=== PATIENT | female | born 1990 | race Caucasian/White ===

== ENCOUNTER → 2020-10-26 14:19 | Outpatient (BNVA) | payer MEDICAID, SELFPAY | PROVIDERS: Visit Provider Advanced Practice Midwife | DX: N92.6 Irregular menstruation, unspecified (principal) | CPT/HCPCS: 81025; 99212 ==

== ENCOUNTER 2020-11-04 11:36 | Outpatient (REF) | payer MEDICAID, SELFPAY ==
--- NOTE | 2020-11-04 11:47 | US_ITS ---
EXAMINATION: US OB LESS THAN 14 WEEKS CLINICAL INFORMATION: Irregular menses. COMPARISON: None TECHNIQUE: Transabdominal imaging of pelvis is performed. FINDINGS: There is a single intrauterine uterine gestational sac and live fetus with an ultrasound gestational age of 7 weeks and 2 days and TERESA of 06/21/2021. There is visualization of yolk sac, pole and heart beat. The heart rate is 158 bpm. The right ovary measures 3.2 x 2.1 x 2.8 cm and a corpus luteal cyst measuring 2.2 x 1.3 x 1.6 cm. The left ovary is not visualized as surgically removed. There is a small amount of free fluid in cul-de-sac. US/US OB <= 14 weeks fetus IMPRESSION: Single live intrauterine fetus with an ultrasound gestational age of 7 weeks and 2 days.
== END 2020-11-04 11:37 | disposition home or self-care (01) ==
LOC: HO.US 11:36
PROVIDERS: Visit Provider Advanced Practice Midwife
DX: N92.6 Irregular menstruation, unspecified (principal)
CPT/HCPCS: 76801

== ENCOUNTER → 2020-11-25 13:59 | Outpatient (BNVA) | payer MEDICAID, SELFPAY | PROVIDERS: Visit Provider Advanced Practice Midwife | CPT/HCPCS: 99212 ==

== ENCOUNTER 2020-11-29 13:11 | Outpatient (REF) | payer MEDICAID, SELFPAY ==
[2020-11-29 14:24] LABS: MANUAL DIFF FLAG NO
[2020-11-29 14:28] LABS: Basophils Absolute Auto 0.1 X10*3/uL (0.0-0.2); Basophils Percent Auto 0.8 % (0-2); Eosinophils Absolute Auto 0.1 X10*3/uL (0.0-0.4); Eosinophils Percent Auto 0.8 % (0-4); Hematocrit 34.8 % (37-47); Hemoglobin 12.1 g/dl (12.0-16.0); Imm Gran Abs Auto 0.01 X10*3/uL (0.00-0.03); Imm Gran Pct Auto 0.2 % (0.0-0.4); Lymphocytes Absolute Auto 2.2 X10*3/uL (1.2-4.9); Lymphocytes Percent Auto 33.9 % (20-40); Mean Corpuscular HGB Conc 34.8 g/dl (31.0-35.0); Mean Corpuscular Hemoglobin 31.3 pg (27.0-33.0); Mean Corpuscular Volume 89.9 fL (80-98); Mean Platelet Volume 11.5 fL (9.4-12.3); Monocytes Absolute Auto 0.4 X10*3/uL (0.1-1.2); Monocytes Percent Auto 5.8 % (2-11); Neutrophils Absolute Auto 3.8 X10*3/uL (2.0-8.3); Neutrophils Percent Auto 58.5 % (45-73); Platelet Count 211 X10*3/uL (160-400); Red Blood Count 3.87 X10*6/uL (4.20-5.50); Red Cell Distribution Width 12.6 % (11.0-16.0); White Blood Count 6.5 X10*3/uL (4.8-10.8)
[2020-11-29 15:32] LABS: Syphilis Screen Nonreactive (Nonreactive)
[2020-11-29 16:53] LABS: Amphetamine Screen Urine Not Detected (Not Detect); Barbiturates, Urine Not Detected (Not Detect); Benzodiazepines Screen Urine Not Detected (Not Detect); Cannabinoid Screen Urine Not Detected (Not Detect); Cocaine Screen Urine Not Detected (Not Detect); Opiate Screen Urine Not Detected (Not Detect); Phencyclidine Screen Urine Not Detected (Not Detect)
[2020-11-30 03:53] LABS: HBsAGNum1 0.25 S/CO (0.00-0.99); HIV AB/AG Nonreactive (Nonreactive); HIV Num 1 0.06 S/CO (0.00-0.99); Hepatitis B Surface Antigen Negative (Negative)
[2020-11-30 04:00] LABS: ~HepC Num1 0.08 S/CO (0.00-0.79); ~Hepatitis C Antibody Nonreactive (Nonreactive)
== END 2020-11-29 13:12 | disposition home or self-care (01) ==
LOC: HO.LAB 13:11
PROVIDERS: PCP Internal Medicine; Visit Provider Advanced Practice Midwife
DX: Z34.90 Encounter for supervision of normal pregnancy, unspecified, unspecified trimester (principal)
CPT/HCPCS: 80307; 85025; 86762; 86780; 86787; 86803; 86850; 86900; 86901; 87086; 87147; 87340; 87389

== ENCOUNTER 2020-12-10 11:05 | Outpatient (REF) | payer MEDICAID, SELFPAY ==
--- NOTE | ~2020-12-10 | US_ITS ---
EXAMINATION: OBSTETRICAL ULTRASOUND, FIRST TRIMESTER HISTORY: 30-year-old at the 13.2 weeks of gestation NT screening History of SGA COMPARISON: 05/09/2019 TECHNIQUE: Real time transabdominal imaging with color and M-mode Doppler. FINDINGS: A single, live IUP CRL of 66.9 mm c/w 13.0wks is noted. Heart Rate: 156 beats per minute. Normal yolk sac seen. NT was 1.27.mm. NB Present The embryo appears sonographically wnl for this GA. Subchorionic hematoma is noted. Patient is asymptomatic. Right ovary is normal. Status post left oophorectomy. GESTATIONAL AGE: 1. Established GA: 13.2 wks 2. GA from [facility]: 13.0 wks ESTIMATED DATE OF DELIVERY: 1. Established TREESA: 06/15/2021 2. TERESA from [facility]: 06/17/2021 US/US OB 1T nuc measure IMPRESSION: 1. Single live IUP 2. Size equals dates 3. NT of 1.27 mm MFM Consultation: I reviewed the ultrasound findings along with significance of NT measurement. The NT of less than 3mm is generally reassuring. However, the sensitivity for T21 detection is only 60%. I reviewed the availability of serum aneuploidy screening which includes cell-free DNA and placental protein based tests. I discussed the sensitivity, false-positive rate, and other limitations associated with each test. I also reviewed the availability of invasive diagnostic tests that are associated small but definite risk of miscarriage. We also reviewed the differences between screening tests and diagnostic tests. After our discussion, she opted for the First trimester screening that is based on cell-free DNA or non-invasive testing (NIPT). In 2019, she was induced at 38 weeks of gestation for suspected of SGA. The weight was 5 lbs. 11 oz. The child is doing well. She has 3 other healthy children. I reassured her that approximately 70% of the fetuses whose EFW corresponds to less than 10th percentile are constitutionally children who are growing appropriately. Interval growth evaluation throughout the is suggested. A follow up at 18 weeks for survey has been scheduled. Thank you very much for this referral. Majority of this visit was spent reviewing her care and counselling her in face to face time: Time spent 30 min.
== END 2020-12-10 11:06 | disposition home or self-care (01) ==
LOC: HO.US 11:05
PROVIDERS: Visit Provider Advanced Practice Midwife
DX: Z34.91 Encounter for supervision of normal pregnancy, unspecified, first trimester (principal); Z36.82 Encounter for antenatal screening for nuchal translucency
CPT/HCPCS: 76813

== ENCOUNTER 2020-12-16 13:13 | Outpatient (REF) | payer MEDICAID, SELFPAY ==
[2020-12-16 15:59] LABS: Thyroid Stimulating Hormone 2.07 uIU/mL (0.32-4.0)
[2020-12-16 16:11] LABS: Glucose Random 67 mg/dL (60-115)
[2020-12-17 09:00] LABS: BV Int Neg Control Negative (Negative); BV Int Pos Control Positive (Positive)
[2020-12-17 14:02] LABS: C. trachomatis RNA TMA NOT DETECTED (NOT DETECTED); N. gonorrhoeae RNA TMA NOT DETECTED (NOT DETECTED)
== END 2020-12-16 13:14 | disposition home or self-care (01) ==
LOC: HO.LAB 13:13
PROVIDERS: Visit Provider Advanced Practice Midwife
DX: O99.340 Other mental disorders complicating pregnancy, unspecified trimester (principal); F32.9 Major depressive disorder, single episode, unspecified
CPT/HCPCS: 36415; 81003; 82947; 84443; 87480; 87491; 87510; 87591; 87660; 88142; 99212

== ENCOUNTER → 2021-01-13 11:44 | Outpatient (BNVA) | payer MEDICAID, SELFPAY | PROVIDERS: Visit Provider Advanced Practice Midwife | DX: Z34.92 Encounter for supervision of normal pregnancy, unspecified, second trimester (principal); Z3A.18 18 weeks gestation of pregnancy | CPT/HCPCS: 99212 ==

== ENCOUNTER 2021-01-21 10:51 | Outpatient (REF) | payer MEDICAID, SELFPAY ==
--- NOTE | ~2021-01-21 | US_ITS ---
EXAMINATION: US OBSTETRICAL CLINICAL INFORMATION: 30-year-old at 19.2 weeks of gestation Suspected anomaly COMPARISON: 12/10/2020 TECHNIQUE: Real-time transabdominal ultrasound was performed using C1-5 megahertz transducer. FINDINGS: A single, active, fetus is seen in transverse presentation. The placenta is posterior without previa, and the amniotic fluid volume is wnl. MEASUREMENTS: 1. Biparietal Diameter: 4.2 cm; 18.5 wks 2. Occipital Frontal Diameter: 5.5 cm 3. Head Circumference: 15.7 cm; 18.5 wks 4. Abdominal Circumference: 13.0 cm; 18.4 wks 5. Femur Length: 3.1 cm; 19.4 wks 6. Humerus Length: 2.9 cm; 19.4 wks 7. Tibia Length: 2.7 cm; 19.5 wks 8. Ulna Length: 2.6 cm; 19.4 wks 9. Lateral ventricle: 0.85 cm 10. Cerebellum: 1.8 cm; 18.3 wks 11. Cisterna Magna: 0.4 cm 12. Nuchal Fold: 3.0 mm 13. Heart Rate: 149 beats per minute Rt ovary: Status post nephrectomy Lt ovary: normal Cervical length 3.6 cm on T/A. GESTATIONAL AGE: 1. Established GA: 19.2 wks 2. GA from [facility]: 19.0 wks ESTIMATED DATE OF DELIVERY: 1. Established TERESA: 06/15/2021 2. TERESA from [facility]: 06/17/2021 ANATOMY: Left choroid plexus cyst was noted. Rest of the survey was unremarkable. The visualized anatomy includes but not limited to: 1. Cranium: Normal 2. Intracranial anatomy: Left choroid plexus cyst, cavum septum pellucidi, lateral ventricles, cerebellum, posterior fossa, third and fourth ventricles. 3. face: orbits, lip/palate, profile, nasal bone 4. Heart: four-chamber view of the heart, ventricular septum, foramen ovale, pulmonary vein, left and right outflow tracts, three-vessel view, 3 vessel trachea view, aortic and ductal arches, situs.. 5. Diaphragm: Normal 6. Abdominal wall: Normal 7. Cord Insertion: Normal 8. Spine: Cervical, thoracic, lumbar, sacral. 9. Stomach: Normal size and shape 10. Right Kidney: Normal 11. Left Kidney: Normal 12. 3 vessel cord: Normal 13. Upper extremity: Open hands, fifth digit. 14. Lower extremity: Tibia, fibula, bilateral feet. 15. Bladder: Normal 16. Genitalia: Male, patient aware US/US OB /maternal detail IMPRESSION: 1. Single, living, intrauterine with appropriate biometry. 2. Isolated choroid plexus cyst. Rest of the survey was unremarkable. 3. Normal amniotic fluid volume DISCUSSION: I reviewed the association between choroid plexus cyst and trisomy 18. The likelihood ratio is less than 2. She had low risk NIPT. In this setting, isolated choroid plexus cyst is considered to be a normal variant. Aside from its association with the trisomy 18, the clinical significance of choroid plexus cyst is unknown. We discussed the limitations of ultrasound in diagnosing aneuploidy and other congenital abnormalities. I reviewed the differences between screening test and diagnostic test. Amniocentesis was discussed and declined. She was informed that the baseline incidence of congenital abnormalities is approximately 3-5%. Not all these conditions are diagnosable in utero. RECOMMENDATIONS: 1. Follow-up as clinically indicated Thank you for allowing me to participate in her care. Total time 30 minutes. The time spent was devoted to counseling the patient about the disease and diagnosis, coordinating care including reviewing her records, pertinent lab data and studies, as well as discussing diagnostic evaluation and workup, plan therapeutic interventions and future disposition of care. This includes any additional research needed to obtain further information in formulating the plan of care of this patient. This note was generated with a voice recognition program. Please excuse any errors which may have been overlooked during my review of this note. Sometimes these errors may affect the content or meaning of a given sentence.
== END 2021-01-21 10:52 | disposition home or self-care (01) ==
LOC: HO.US 10:51
PROVIDERS: Visit Provider Advanced Practice Midwife
DX: O35.9XX0 Maternal care for (suspected) fetal abnormality and damage, unspecified, not applicable or unspecified (principal); O99.340 Other mental disorders complicating pregnancy, unspecified trimester; F32.9 Major depressive disorder, single episode, unspecified; Z3A.19 19 weeks gestation of pregnancy
CPT/HCPCS: 76811

== ENCOUNTER → 2021-02-21 13:25 | Outpatient (BNVA) | payer MEDICAID, SELFPAY | PROVIDERS: Visit Provider Advanced Practice Midwife | DX: Z34.92 Encounter for supervision of normal pregnancy, unspecified, second trimester (principal); Z3A.23 23 weeks gestation of pregnancy | CPT/HCPCS: 81003; 99212 ==

== ENCOUNTER → 2021-03-28 10:01 | Outpatient (BNVA) | payer MEDICAID, SELFPAY | PROVIDERS: Visit Provider Advanced Practice Midwife | DX: Z34.93 Encounter for supervision of normal pregnancy, unspecified, third trimester (principal); Z3A.28 28 weeks gestation of pregnancy | CPT/HCPCS: 81003; 99212 ==

== ENCOUNTER → 2021-04-11 10:59 | Outpatient (BNVA) | payer MEDICAID, SELFPAY | PROVIDERS: Visit Provider Advanced Practice Midwife | DX: O36.8130 Decreased fetal movements, third trimester, not applicable or unspecified (principal); O36.63X0 Maternal care for excessive fetal growth, third trimester, not applicable or unspecified; Z3A.30 30 weeks gestation of pregnancy | CPT/HCPCS: 59025; 99212 ==

== ENCOUNTER 2021-04-15 13:52 | Outpatient (REF) | payer MEDICAID, SELFPAY ==
--- NOTE | ~2021-04-15 | US_ITS ---
EXAMINATION: OBSTETRICAL ULTRASOUND, Follow up HISTORY: 30-year-old at 31.2 weeks of gestation Size date discrepancy COMPARISON: 01/21/2021 TECHNIQUE: Real time transabdominal imaging with color and M-mode Doppler. PRESENTATION: Vertex PLACENTA LOCATION: Posterior without previa AMNIOTIC FLUID: KEVIN 18.7 cm MEASUREMENTS: 1. Biparietal Diameter: 7.7 cm; 31.1 wks 2. Head Circumference: 28.7 cm; 31.5 wks 3. Abdominal Circumference: 26.1 cm; 30.2 wks 4. Femur Length: 6.3 cm; 32.5 wks 5. Heart Rate: 138 beats per minute WEIGHT: EFW: 1720 grams (3 lbs 13 oz) -- 35 %. BIOPHYSICAL PROFILE: Motion: 2 Tone: 2 Breathin Amniotic Fluid: 2 Total score: 8/8 GESTATIONAL AGE: 1. Established GA: 31.2 wks 2. GA from A: 31.4 wks ESTIMATED DATE OF DELIVERY: 1. Established TERESA: 06/15/2021 2. TERESA from [facility]: 06/13/2021 US/US OB follow up IMPRESSION: 1. A single active fetus is in vertex presentation 2. Size equals dates 3. Reassuring biophysical profile Thank you very much for this referral. No further ultrasound has been scheduled. This note was generated with a voice recognition program. Please excuse any errors which may have been overlooked during my review of this note. Sometimes these errors may affect the content or meaning of a given sentence.
== END 2021-04-15 13:53 | disposition home or self-care (01) ==
LOC: HO.US 13:52
PROVIDERS: Visit Provider Advanced Practice Midwife
DX: O36.60X0 Maternal care for excessive fetal growth, unspecified trimester, not applicable or unspecified (principal)
CPT/HCPCS: 76816

== ENCOUNTER → 2021-04-27 13:07 | Outpatient (BNVA) | payer MEDICAID, SELFPAY | PROVIDERS: Visit Provider Advanced Practice Midwife | DX: Z34.93 Encounter for supervision of normal pregnancy, unspecified, third trimester (principal); Z3A.33 33 weeks gestation of pregnancy | CPT/HCPCS: 81003; 99212 ==

== ENCOUNTER 2021-05-11 10:51 | Outpatient (REF) | payer MEDICAID, SELFPAY ==
[2021-05-11 14:02] LABS: Hematocrit 31.7 % (37-47); Hemoglobin 10.4 g/dl (12.0-16.0); Mean Corpuscular HGB Conc 32.8 g/dl (31.0-35.0); Mean Corpuscular Hemoglobin 30.3 pg (27.0-33.0); Mean Corpuscular Volume 92.4 fL (80-98); Mean Platelet Volume 12.2 fL (9.4-12.3); Platelet Count 153 X10*3/uL (160-400); Red Blood Count 3.43 X10*6/uL (4.20-5.50); Red Cell Distribution Width 12.2 % (11.0-16.0); White Blood Count 7.6 X10*3/uL (4.8-10.8)
[2021-05-11 14:37] LABS: Glucose 1 Hour PP 50gm Dose 95 mg/dL (60-140)
[2021-05-11 16:02] LABS: Syphilis Screen Nonreactive (Nonreactive)
== END 2021-05-11 10:52 | disposition home or self-care (01) ==
LOC: HO.LAB 10:51
PROVIDERS: Visit Provider Advanced Practice Midwife
DX: Z23 Encounter for immunization (principal); O26.843 Uterine size-date discrepancy, third trimester
CPT/HCPCS: 36415; 85027; 86780; 90471; 90715; 99212

== ENCOUNTER 2021-05-18 11:29 | Outpatient (REF) | payer MEDICAID, SELFPAY ==
[2021-05-18 16:09] LABS: CT PCR NOT DETECTED (Not Detect.); NG PCR NOT DETECTED (Not Detect.)
== END 2021-05-18 11:30 | disposition home or self-care (01) ==
LOC: HO.LAB 11:29
PROVIDERS: Visit Provider Advanced Practice Midwife
DX: O26.843 Uterine size-date discrepancy, third trimester (principal); O99.013 Anemia complicating pregnancy, third trimester; D64.9 Anemia, unspecified; Z3A.36 36 weeks gestation of pregnancy
CPT/HCPCS: 81003; 87081; 87147; 87491; 87591; 99212

== ENCOUNTER 2021-05-20 10:51 | Outpatient (REF) | payer MEDICAID, SELFPAY ==
--- NOTE | ~2021-05-20 | US_ITS ---
EXAMINATION: OBSTETRICAL ULTRASOUND, Follow up HISTORY: 30-year-old at the 30 6. The 2 weeks of gestation Size less than dates COMPARISON: 04/15/2021 TECHNIQUE: Real time transabdominal imaging with color and M-mode Doppler. PRESENTATION: Vertex PLACENTA LOCATION: Posterior without previa AMNIOTIC FLUID: Within normal limits, KEVIN 14.0 cm MEASUREMENTS: 1. Biparietal Diameter: 8.7 cm; 35.3 wks 2. Head Circumference: 32.3 cm; 36.4 wks 3. Abdominal Circumference: 32.0 cm; 36.0 wks 4. Femur Length: 7.1 cm; 36.1 wks 5. Heart Rate: 147 beats per minute WEIGHT: EFW: 2816 grams (6 lbs 3 oz) -- 44 %. BIOPHYSICAL PROFILE: Motion: 2 Tone: 2 Breathin Amniotic Fluid: 2 Total score: 05/29 GESTATIONAL AGE: 1. Established GA: 36.2 wks 2. GA from [facility]: 36.1 wks ESTIMATED DATE OF DELIVERY: 1. Established TERESA: 06/15/2021 2. TERESA from [facility]: 06/16/2021 US/US OB follow up IMPRESSION: 1. A single active fetus is in vertex presentation 2. Size equals dates 3. BPP 05/29 Thank you very much for this referral. This note was generated with a voice recognition program. Please excuse any errors which may have been overlooked during my review of this note. Sometimes these errors may affect the content or meaning of a given sentence.
== END 2021-05-20 10:52 | disposition home or self-care (01) ==
LOC: HO.US 10:51
PROVIDERS: Visit Provider Advanced Practice Midwife
DX: O26.843 Uterine size-date discrepancy, third trimester (principal); Z3A.00 Weeks of gestation of pregnancy not specified
CPT/HCPCS: 76816

== ENCOUNTER → 2021-05-25 11:15 | Outpatient (BNVA) | payer MEDICAID, SELFPAY | PROVIDERS: Visit Provider Advanced Practice Midwife | DX: O99.013 Anemia complicating pregnancy, third trimester (principal); Z3A.37 37 weeks gestation of pregnancy | CPT/HCPCS: 81003; 99212 ==

== ENCOUNTER → 2021-07-01 12:49 | Outpatient (BNVA) | payer MEDICAID, SELFPAY | PROVIDERS: Visit Provider Advanced Practice Midwife | DX: Z39.2 Encounter for routine postpartum follow-up (principal); Z39.1 Encounter for care and examination of lactating mother; Z30.09 Encounter for other general counseling and advice on contraception | CPT/HCPCS: 99212 ==

== ENCOUNTER 2021-09-19 08:36 | Outpatient (REF) | payer MEDICAID, SELFPAY ==
[2021-09-20 09:39] LABS: BV Int Neg Control Negative (Negative); BV Int Pos Control Positive (Positive)
== END 2021-09-19 08:37 | disposition home or self-care (01) ==
LOC: HO.LAB 08:36
PROVIDERS: Visit Provider Advanced Practice Midwife
DX: Z39.1 Encounter for care and examination of lactating mother (principal); Z30.017 Encounter for initial prescription of implantable subdermal contraceptive; N89.8 Other specified noninflammatory disorders of vagina; Z20.2 Contact with and (suspected) exposure to infections with a predominantly sexual mode of transmission
CPT/HCPCS: 11981; 81025; 87480; 87510; 87660; 99212; J7307

== ENCOUNTER → 2022-02-01 12:05 | Outpatient (BNVA) | payer MEDICAID, SELFPAY | PROVIDERS: Visit Provider Advanced Practice Midwife | DX: Z13.89 Encounter for screening for other disorder (principal) ==

== ENCOUNTER → 2022-03-06 13:43 | Outpatient (BNVA) | payer MEDICAID, SELFPAY | PROVIDERS: Visit Provider Advanced Practice Midwife | DX: N92.1 Excessive and frequent menstruation with irregular cycle (principal); Z97.5 Presence of (intrauterine) contraceptive device | CPT/HCPCS: 99212 ==

== ENCOUNTER 2022-11-09 10:35 | Outpatient (REF) | payer MEDICAID, SELFPAY ==
[2022-11-09 11:47] LABS: Hematocrit 35.8 % (37.0-47.0); Hemoglobin 12.2 g/dl (12.0-16.0); Mean Corpuscular HGB Conc 34.1 g/dl (31.0-35.0); Mean Corpuscular Hemoglobin 30.3 pg (27.0-33.0); Mean Corpuscular Volume 88.8 fL (80.0-98.0); Platelet Count 202 X10*3/uL (160-400); Red Blood Count 4.03 X10*6/uL (4.20-5.50)
[2022-11-09 16:07] LABS: CT PCR NOT DETECTED (Not Detect.); NG PCR NOT DETECTED (Not Detect.)
== END 2022-11-09 10:36 | disposition home or self-care (01) ==
LOC: HO.LAB 10:35
PROVIDERS: Visit Provider Advanced Practice Midwife
DX: N92.1 Excessive and frequent menstruation with irregular cycle (principal); Z97.5 Presence of (intrauterine) contraceptive device; Z20.2 Contact with and (suspected) exposure to infections with a predominantly sexual mode of transmission; Z32.00 Encounter for pregnancy test, result unknown
CPT/HCPCS: 0353U; 81025; 84443; 85027; 87480; 87510; 87660; 99212

== ENCOUNTER 2022-11-09 11:18 | Outpatient (REF) | payer MEDICAID, SELFPAY ==
[2022-11-10 09:56] LABS: BV Int Neg Control Negative (Negative); BV Int Pos Control Positive (Positive)
== END 2022-11-09 11:19 | disposition home or self-care (01) ==
LOC: HO.LNP 11:18
PROVIDERS: Visit Provider Advanced Practice Midwife
DX: N92.1 Excessive and frequent menstruation with irregular cycle (principal); Z97.5 Presence of (intrauterine) contraceptive device; Z20.2 Contact with and (suspected) exposure to infections with a predominantly sexual mode of transmission
CPT/HCPCS: 87480; 87510; 87660

== ENCOUNTER 2023-01-26 12:38 | Emergency (ER) | payer MEDICAID, SELFPAY ==
--- NOTE | ~2023-01-26 | XR_ITS ---
EXAMINATION: XR WRIST, LEFT CLINICAL INFORMATION: Pain COMPARISON: None available. TECHNIQUE: 4 views of the left wrist. FINDINGS: The bones and soft tissues are normal. No fracture. Alignment is anatomic with normal joint spaces. No erosions or abnormal soft tissue calcifications. XR/XR wrist LT 2V IMPRESSION: Normal left wrist.
--- NOTE | 2023-01-26 12:48 | ED_ITS ---
HPI - General Adult General Chief complaint: Extremity Injury, Upper <SANTO Barajas - Last Filed: 01/26/23 13:58> Stated complaint: l wrist pain <SANTO Barajas - Last Filed: 01/26/23 13:58> Time Seen by Provider: 01/26/23 13:57 <SANTO Barajas - Last Filed: 01/26/23 13:58> Source: patient <Abhishek Guerrero MD - Last Filed: 01/26/23 14:05> Mode of arrival: ambulatory <Abhishek Guerrero MD - Last Filed: 01/26/23 14:05> Limitations: no limitations <Abhishek Guerrero MD - Last Filed: 01/26/23 14:05> History of Present Illness HPI narrative: 32-year-old female presents with left ulnar wrist pain for 1 day. Patient denies any falls or injury. The pain is moderate in nature. The pain radiates to the fingers distally. Is worse with certain twisting movements. There is no weakness associated with. There is no trauma. She denies any joint or other musculoskeletal complaints. <Abhishek Guerrero MD - Last Filed: 01/26/23 14:05> Related Data Home medications: Home Medications Medication Instructions Recorded Confirmed etonogestrel 68 mg subdermal subdermal 02/01/22 03/06/22 implant (Nexplanon) Previous Rx's Medication Instructions Recorded naproxen 500 mg tablet 500 mg PO BID 2 weeks #28 tabs 01/26/23 <SANTO Barajas - Last Filed: 01/26/23 13:58> Allergies/adverse reactions: Allergies Allergy/AdvReac Type Severity Reaction Status Date / Time No Known Allergies Allergy Verified 11/09/22 10:44 [No Known Allergies*] <SANTO Barajas - Last Filed: 01/26/23 13:58> [facility] Past Medical History Medical History: Medical History COVID-19 <SANTO Barajas - Last Filed: 01/26/23 13:58> Surgical History: Surgical History S/P removal of left ovary <SANTO Barajas - Last Filed: 01/26/23 13:58> Family History Family History: Family History Mother History of heart disease Father Hx of heart bypass surgery Maternal Grandmother No problems noted. Sister Family history of bipolar disorder <SANTO Barajas - Last Filed: 01/26/23 13:58> Social History Social History: Social History Household Members: Significant Other and Children Alcohol intake: never Sexual orientation: Straight/Heterosexual Gender identity: Female <SANTO Barajas - Last Filed: 01/26/23 13:58> Physical Exam ED Vital Signs: Vital Signs - 24 hr 01/26/23 12:49 Temperature 97.6 F Pulse Rate 74 Respiratory Rate 14 Blood Pressure 111/68 Pulse Oximetry 99 Oxygen Delivery Method Room Air BMI result Body Mass Index 19.7 <SANTO Barajas - Last Filed: 01/26/23 13:58> Vital Signs - 24 hr 01/26/23 12:49 Temperature 97.6 F Pulse Rate 74 Respiratory Rate 14 Blood Pressure 111/68 Pulse Oximetry 99 Oxygen Delivery Method Room Air BMI result Body Mass Index 19.7 <Abhishek Guerrero MD - Last Filed: 01/26/23 14:05> GEN: Well developed, no acute distress, alert, oriented HEENT: Normocephalic, atraumatic, normal external ears, nose appears normal Eyes: Normal to appearance Neck: Supple, no lymphadenopathy Respiratory: Talks in complete sentences, no respiratory distress Extremities: No clubbing cyanosis or edema, tenderness along the ulnar aspect of the left wrist, no swelling or redness, no deformity Neurologic: No focal neurologic deficits, cranial nerves 2-12 intact, gait normal Skin: No rash <Abhishek Guerrero MD - Last Filed: 01/26/23 14:05> Course Course Course Narrative: RME performed by Samira Lopez PA-C. Patient is a 32 year old assigned female at presenting to the emergency department with right wrist pain. Imaging ordered. Patient placed back in the waiting room pending room availability and results. <SANTO Barajas Last Filed: 01/26/23 13:58> Reevaluation(s) Reevaluation #1: X-rays negative. Symptoms are most consistent with either a contusion of unclear etiology or tendinitis. Any event, we will recommend NSAID use, ice and follow up with primary care provider as needed. <Abhishek Guerrero MD - Last Filed: 01/26/23 14:05> Time: 14:01 <Abhishek Guerrero MD - Last Filed: 01/26/23 14:05> Medical Decision Making Medical Decision Making MDM Narrative: 32-year-old female presents with left ulnar wrist pain, nontraumatic. Examination revealed tenderness but no swelling or deformity. X-ray was negative for fracture. Suspect either tendinitis or contusion. Will recommend NSAID use in follow-up as needed. <Abhishek Guerrero MD - Last Filed: 01/26/23 14:05> Differential Diagnosis Differential Diagnoses: The differential diagnosis associated with the presentation includes (Contusion, sprain, strain, fracture, tendinitis, bursitis) <Abhishke Guerrero MD - Last Filed: 01/26/23 14:05> Independent Interpretation I performed an independent interpretation of an: Plain X-Ray (left wrist - NAD) <Abhishek Guerrero MD - Last Filed: 01/26/23 14:05> Radiology Impression Discussion of test interpretation with radiology: I have reviewed the radiologist's reading. ( XR/XR wrist LT 2V IMPRESSION: Normal left wrist. Dictated By:Ce Bolden MDSigned By:<Electronically signed by Ce Bolden MD in [place]>01/26/23 1344) <Abhishek Guerrero MD - Last Filed: 01/26/23 14:05> Tests considered The following testing was considered but not selected: CT <Abhishek Guerrero MD - Last Filed: 01/26/23 14:05> Prescription Management I considered prescription management with: Pain Medication <Abhishek Guerrero MD - Last Filed: 01/26/23 14:05> Discharge Plan Discharge Clinical Impression: Acute pain of left wrist <SANTO Barajas - Last Filed: 01/26/23 13:58> Patient Disposition: Home, Self-Care <SANTO Barajas - Last Filed: 01/26/23 13:58> Instructions: Wrist Injury (ED), Arthralgia (ED), Tendinitis (ED), Ice Pack Application (ED) <SANTO Barajas - Last Filed: 01/26/23 13:58> Prescriptions: New naproxen 500 mg tablet 500 mg PO BID 14 Days Qty: 28 0RF Rx Instructions: take with food Discontinued ibuprofen 600 mg tablet 600 mg PO TID PRN (Reason: pain) 10 Days Qty: 30 0RF No Action Nexplanon 68 mg implant subdermal <SANTO Barajas - Last Filed: 01/26/23 13:58> Referrals: Physician,Unknown J [Primary Care Provider] - 2 weeks <SANTO Barajas - Last Filed: 01/26/23 13:58>
[2023-01-26 12:49] VITALS: BP 111/68; PULSE 74; RESP 14; TEMP 36.4; O2SAT 99; BMI 19.7
== END 2023-01-26 14:16 | disposition home or self-care (01) ==
PROVIDERS: Emergency Provider Emergency Medicine
DX: M25.532 Pain in left wrist (principal)
CPT/HCPCS: 73100; 99282; 99283

== ENCOUNTER 2023-04-04 11:00 | Emergency (ER) | payer MEDICAID, SELFPAY ==
--- NOTE | ~2023-04-04 | US_ITS ---
EXAMINATION: US OBSTETRICAL ULTRASOUND CLINICAL INFORMATION: 11 week and bleeding COMPARISON: None available. LMP: 01/18/2023. Gestational age by maternal dates is 10 weeks 6 days. Estimated date of delivery by maternal dates is 10/25/2019. TECHNIQUE: Both transabdominal and endovaginal scanning was performed. FINDINGS: A gestational sac is seen but no yolk sac is detected. A pole is identified that measures 0.37 cm which would correspond to gestational age of 6 weeks 1 day. However, no heartbeat is detected. . MATERNAL ADNEXA: The right maternal ovary measures 3.6 x 4.1 x 2.0 cm. There is a 1.8 cm benign cyst in the right ovary. The left maternal ovary has been removed No free fluid present in the cul-de-sac. US/US OB pelvic and transvaginal IMPRESSION: A pole is seen but no heartbeat is detected. The yolk sac is not seen. Suspect nonviable fetus but Short-term sonographic follow-up and serial beta hCG levels are recommended for further evaluation.
[2023-04-04 11:31] VITALS: BP 109/76; PULSE 89; RESP 18; TEMP 37; O2SAT 99; BMI 19.9
--- NOTE | 2023-04-04 11:31 | ED_ITS ---
HPI - General Chief complaint: Vaginal Bleeding Stated complaint: bleeding Related Data Home Medications Medication Instructions Recorded Confirmed etonogestrel 68 mg subdermal subdermal 02/01/22 03/06/22 implant (Nexplanon) Previous Rx's Medication Instructions Recorded naproxen 500 mg tablet 500 mg PO BID 2 weeks #28 tabs 01/26/23 Allergies Allergy/AdvReac Type Severity Reaction Status Date / Time No Known Allergies Allergy Verified 11/09/22 10:44 [No Known Allergies*] [facility] Past Medical History Medical History COVID-19 Surgical History S/P removal of left ovary Family History Family History Mother History of heart disease Father Hx of heart bypass surgery Maternal Grandmother No problems noted. Sister Family history of bipolar disorder Social History Social History Household Members: Significant Other and Children Alcohol intake: never Advance Directives: No Advance Directives Information Provided: No Sexual orientation: Straight/Heterosexual Gender identity: Female Physical Exam Vital Signs: Vital Signs: Last Vital Signs Temp 98.6 F 04/04/23 11:31 Pulse 89 04/04/23 11:31 Resp 18 04/04/23 11:31 BP 109/76 04/04/23 11:31 Pulse Ox 99 04/04/23 11:31 O2 Del Method Room Air 04/04/23 11:31 BMI result Body Mass Index 19.9 Course Course Course Narrative: RME - 32 y/o female who is currently 11 weeks presents to the ER for evaluation of painless vaginal bleeding for the last 3 days. Described as spotting. OB at [facility] aware but cannot see her until next week. Plan: labs, quant, RH, Ob U/S Reevaluation(s) Reevaluation #1: patient eloped from the ER. attempted to call her to tell her of the results of her U/S showing a nonviable with no HR however her phone went to with no identifiers. Medical Decision Making Lab Data 04/04/23 12:06 04/04/23 12:06 Labs: Lab Results 04/04/23 04/04/23 04/04/23 Range/Units 12:06 12:06 12:06 WBC 8.2 (4.8-10.8) X10*3/uL RBC 4.07 L (4.20-5.50) X10*6/uL Hgb 12.4 (12.0-16.0) g/dl Hct 36.7 L (37.0-47.0) % MCV 90.2 (80.0-98.0) fL MCH 30.5 (27.0-33.0) pg MCHC 33.8 (31.0-35.0) g/dl RDW 12.2 (11.0-16.0) % Plt Count 213 (160-400) X10*3/uL MPV 10.6 (9.4-12.3) fL Immature Gran % (Auto) 0.2 (0.0-0.4) % Neut % (Auto) 60.7 (45-73) % Lymph % (Auto) 32.2 (20-40) % [place] % (Auto) 5.6 (2-11) % Eos % (Auto) 0.4 (0-4) % Baso % (Auto) 0.9 (0-2) % Lymph # (Auto) 2.6 (1.2-4.9) X10*3/uL [place] # (Auto) 0.5 (0.1-1.2) X10*3/uL Eos # (Auto) 0.0 (0.0-0.4) X10*3/uL Baso # (Auto) 0.1 (0.0-0.2) X10*3/uL Abs Immat Gran (auto) 0.02 (0.00-0.03) X10*3/uL Absolute Neuts (auto) 5.0 (2.0-8.3) x10*3/uL Absolute Nucleated RBC 0.000 (0.0-0.012) X10*3/uL Nucleated RBC % (auto) 0.0 (0.0-0.2) /100WBC Sodium 139 (135-145) mmol/L Potassium 3.5 (3.3-5.1) mmol/L Chloride 109 H (96-108) mmol/L Carbon Dioxide 24 (22-29) mmol/L Anion Gap 10 L (12-20) BUN 9 (9-16) mg/dL Creatinine 0.63 (0.5-1.4) mg/dL Estim Creat Clear Calc 100.9 Estimated GFR > 60 Random Glucose 87 (60-115) mg/dL Calcium 9.3 (8.4-10.2) mg/dL Magnesium 2.1 (1.6-2.6) mg/dL Total Bilirubin 0.8 (0.0-1.0) mg/dL Direct Bilirubin 0.2 (0.0-0.5) mg/dL AST 26 (5-31) U/L ALT 16 (0-31) U/L Alkaline Phosphatase 52 (39-117) U/L Total Protein 7.4 (6.5-8.0) g/dL Albumin 4.3 (3.5-5.0) g/dL Beta HCG, Quant 04277 mIU/mL Blood Type 04/04/23 Range/Units 12:06 WBC (4.8-10.8) X10*3/uL RBC (4.20-5.50) X10*6/uL Hgb (12.0-16.0) g/dl Hct (37.0-47.0) % MCV (80.0-98.0) fL MCH (27.0-33.0) pg MCHC (31.0-35.0) g/dl RDW (11.0-16.0) % Plt Count (160-400) X10*3/uL MPV (9.4-12.3) fL Immature Gran % (Auto) (0.0-0.4) % Neut % (Auto) (45-73) % Lymph % (Auto) (20-40) % [place] % (Auto) (2-11) % Eos % (Auto) (0-4) % Baso % (Auto) (0-2) % Lymph # (Auto) (1.2-4.9) X10*3/uL [place] # (Auto) (0.1-1.2) X10*3/uL Eos # (Auto) (0.0-0.4) X10*3/uL Baso # (Auto) (0.0-0.2) X10*3/uL Abs Immat Gran (auto) (0.00-0.03) X10*3/uL Absolute Neuts (auto) (2.0-8.3) x10*3/uL Absolute Nucleated RBC (0.0-0.012) X10*3/uL Nucleated RBC % (auto) (0.0-0.2) /100WBC Sodium (135-145) mmol/L Potassium (3.3-5.1) mmol/L Chloride (96-108) mmol/L Carbon Dioxide (22-29) mmol/L Anion Gap (12-20) BUN (9-16) mg/dL Creatinine (0.5-1.4) mg/dL Estim Creat Clear Calc Estimated GFR Random Glucose (60-115) mg/dL Calcium (8.4-10.2) mg/dL Magnesium (1.6-2.6) mg/dL Total Bilirubin (0.0-1.0) mg/dL Direct Bilirubin (0.0-0.5) mg/dL AST (5-31) U/L ALT (0-31) U/L Alkaline Phosphatase (39-117) U/L Total Protein (6.5-8.0) g/dL Albumin (3.5-5.0) g/dL Beta HCG, Quant mIU/mL Blood Type O Positive Discharge Plan Discharge Clinical Impression: Vaginal bleeding Patient Disposition: Elopement Prescriptions: No Action naproxen 500 mg tablet 500 mg PO BID 14 Days Qty: 28 0RF Rx Instructions: take with food Nexplanon 68 mg implant subdermal
[2023-04-04 12:14] LABS: MANUAL DIFF FLAG NO
[2023-04-04 12:17] LABS: Basophils Absolute Auto 0.1 X10*3/uL (0.0-0.2); Basophils Percent Auto 0.9 % (0-2); Eosinophils Percent Auto 0.4 % (0-4); Hematocrit 36.7 % (37.0-47.0); Hemoglobin 12.4 g/dl (12.0-16.0); Imm Gran Abs Auto 0.02 X10*3/uL (0.00-0.03); Imm Gran Pct Auto 0.2 % (0.0-0.4); Lymphocytes Absolute Auto 2.6 X10*3/uL (1.2-4.9); Lymphocytes Percent Auto 32.2 % (20-40); Mean Corpuscular HGB Conc 33.8 g/dl (31.0-35.0); Mean Corpuscular Hemoglobin 30.5 pg (27.0-33.0); Mean Corpuscular Volume 90.2 fL (80.0-98.0); Mean Platelet Volume 10.6 fL (9.4-12.3); Monocytes Absolute Auto 0.5 X10*3/uL (0.1-1.2); Monocytes Percent Auto 5.6 % (2-11); Neutrophils Percent Auto 60.7 % (45-73); Platelet Count 213 X10*3/uL (160-400); Red Blood Count 4.07 X10*6/uL (4.20-5.50); Red Cell Distribution Width 12.2 % (11.0-16.0); White Blood Count 8.2 X10*3/uL (4.8-10.8)
[2023-04-04 12:31] LABS: Alanine Aminotransferase 16 U/L (0-31); Albumin Level 4.3 g/dL (3.5-5.0); Alkaline Phosphatase 52 U/L (39-117); Anion Gap 10 (12-20); Aspartate Amino Transferase 26 U/L (5-31); Bilirubin Direct 0.2 mg/dL (0.0-0.5); Bilirubin Total 0.8 mg/dL (0.0-1.0); Blood Urea Nitrogen 9 mg/dL (9-16); Calcium 9.3 mg/dL (8.4-10.2); Carbon Dioxide 24 mmol/L (22-29); Chloride 109 mmol/L (96-108); Creatinine Clr Calc Pharmacy 100.9; Estimated Glomerular Filt Rate > 60; Glucose Random 87 mg/dL (60-115); Magnesium 2.1 mg/dL (1.6-2.6); Potassium 3.5 mmol/L (3.3-5.1); Sodium 139 mmol/L (135-145); Total Protein 7.4 g/dL (6.5-8.0)
[2023-04-04 12:37] LABS: HCG Quantitative 14630 mIU/mL
== END 2023-04-04 15:02 | disposition left against medical advice (07) ==
PROVIDERS: Physician Assistant; Emergency Provider Emergency Medicine
DX: O20.9 Hemorrhage in early pregnancy, unspecified (principal); Z3A.11 11 weeks gestation of pregnancy
CPT/HCPCS: 36415; 76801; 76817; 80048; 80076; 83735; 84702; 85025; 86900; 86901; 99281; 99284

== ENCOUNTER 2023-04-04 18:41 | Emergency (ER) | payer MEDICAID, SELFPAY ==
--- NOTE | 2023-04-04 18:46 | ED_ITS ---
HPI - General Adult General Chief complaint: Vaginal Bleeding Stated complaint: vaginal bleeding Time Seen by Provider: 04/04/23 19:33 Source: patient Mode of arrival: ambulatory Limitations: no limitations History of Present Illness HPI narrative: Patient is a at unknown gestational age, comes to the emergency room complaining of spotting for 2 days and heavy bleeding for 1. Patient states that she took a home test and it was positive. Patient known to be O positive blood type. Patient states that she has been having abdominal cramping and passing significant amount of clots throughout the day. denies lightheadedness, no chest pain or shortness of breath. Related Data Home Medications Medication Instructions Recorded Confirmed etonogestrel 68 mg subdermal subdermal 02/01/22 03/06/22 implant (Nexplanon) Previous Rx's Medication Instructions Recorded naproxen 500 mg tablet 500 mg PO BID 2 weeks #28 tabs 01/26/23 ibuprofen 600 mg tablet 600 mg PO TID PRN fever or pain 04/04/23 #20 tabs Allergies Allergy/AdvReac Type Severity Reaction Status Date / Time No Known Allergies Allergy Verified 11/09/22 10:44 [No Known Allergies*] Review of Systems Review of Systems: Constitutional : No Weight loss, No Fever, No Chills, No Night Sweats, No Fat igue, No Malaise ENT/Mouth : No Hearing loss, No Ear Pain, No Nasal Congestion, No Sinus Pain, No Hoarseness, No sore throat, No Rhinorrhea, No Swallowing Difficulty Eyes: No Eye Pain, No Swelling, No Redness, No Foreign Body, No Discharge, No Vision Changes Cardiovascular : No Chest Pain, No SOB, No Dyspnea on Exertion, No Orthopnea, No Edema, No Palpitations Respiratory : No Cough, No Sputum, No Wheezing, No Smoke Exposure, No Dyspnea Gastrointestinal : No Nausea, No Vomiting, No Diarrhea, No Constipation, No abdominal Pain, No Hematochezia, No Melena Genitourinary : Complaining of passing blood clots come No Dysuria, No Urinary Frequency, No Hematuria, No Urinary Incontinence, No Urgency, No Flank Pain, No Urinary Flow Changes, No Hesitancy Musculoskeletal : No joint pain, No Myalgias, No Joint Swelling Skin : No Skin Lesions, No rash Neuro : No Weakness, No Numbness, No Paresthesias, No Loss of Consciousness, No Dizziness, No Headache Psych : No Anxiety/Panic, No Depression, No SI/HI/AH/VH, No Social Issues, Heme/Lymph: No Bruising, No Bleeding,No Lymphadenopathy Endocrine : No Polyuria, No Polydipsia, No Temperature Intolerance [facility] Past Medical History Medical History COVID-19 Surgical History S/P removal of left ovary Family History Family History Mother History of heart disease Father Hx of heart bypass surgery Maternal Grandmother No problems noted. Sister Family history of bipolar disorder Social History Social History Household Members: Significant Other and Children Alcohol intake: never Smoked in Last 30 Days: No Advance Directives: No Advance Directives Information Provided: No Patient : Yes Sexual orientation: Straight/Heterosexual Gender identity: Female Physical Exam ED Vital Signs: Vital Signs - 24 hr 04/04/23 18:47 04/04/23 19:47 Temperature 98.5 F 98.4 F Pulse Rate 83 98 Respiratory Rate 18 16 Blood Pressure 129/85 123/78 Pulse Oximetry 99 98 Oxygen Delivery Method Room Air Room Air BMI result Body Mass Index 19.8 Const Other: Appearance: Alert. Oriented X3. No acute distress. Eyes: Pupils equal, round and reactive to light. ENT: Pharynx normal. Neck: Normal inspection. Neck supple. No lymph nodes noted. No crepitus CVS: Normal heart rate and rhythm. Pulses normal. Normal S1 and S2 Respiratory: No respiratory distress. Breath sounds normal. No Wheezing. No rales Abdomen: Soft and nontender. No rigidity. No distention. : There is a large amount of tissue in the cervical os, moderate amount of blood in the vaginal vault Skin: Skin warm and dry. Normal skin color. Normal skin turgor. Extremities: No lower extremity edema. No Lacerations. No Rash Neuro: Oriented X 3. No motor deficit. No sensory deficit. Moving all extremities. No slurred speech. CN 2 through 12 grossly intact Psych: calm, cooperative, normal affect Course Course Course Narrative: RME - 32 yo currently , had home test mid-May unclear LMP who presents with painless vaginal bleeding. Unclear LMP per patient. US here earlier today as below: US/US OB pelvic and transvaginal IMPRESSION: A pole is seen but no heartbeat is detected. The yolk sac is not seen. Suspect nonviable fetus but? Short-term sonographic follow-up and serial beta hCG levels are recommended for further evaluation. plan: f/u Dr. Conway recs Medical Decision Making Medical Decision Making [facility] Narrative: -with ring forceps, a large amount of tissue was extracted, cervical os is completely open. After the products of conception were removed from the cervical os, the patient stopped bleeding. -discussed with the patient that she needs to have a repeat hCG level to make sure that the hCG is returning to 0. Patient has an appointment tomorrow with her OB Gyne. -patient was given p.o. acetaminophen in the emergency room. -seems that this was a completed miscarriage -H&H stable -patient was provided with a lab form to obtain hCG levels in approximately 48 hours. Lab Data [facility] Lab Attestation statement: I reviewed the patient's lab results. 04/04/23 19:52 Labs: Lab Results 04/04/23 Range/Units 19:52 WBC 8.2 (4.8-10.8) X10*3/uL RBC 4.08 L (4.20-5.50) X10*6/uL Hgb 12.3 (12.0-16.0) g/dl Hct 36.3 L (37.0-47.0) % MCV 89.0 (80.0-98.0) fL MCH 30.1 (27.0-33.0) pg MCHC 33.9 (31.0-35.0) g/dl RDW 12.1 (11.0-16.0) % Plt Count 226 (160-400) X10*3/uL MPV 10.4 (9.4-12.3) fL Immature Gran % (Auto) 0.1 (0.0-0.4) % Neut % (Auto) 48.4 (45-73) % Lymph % (Auto) 44.3 H (20-40) % [place] % (Auto) 5.6 (2-11) % Eos % (Auto) 0.7 (0-4) % Baso % (Auto) 0.9 (0-2) % Lymph # (Auto) 3.7 (1.2-4.9) X10*3/uL [place] # (Auto) 0.5 (0.1-1.2) X10*3/uL Eos # (Auto) 0.1 (0.0-0.4) X10*3/uL Baso # (Auto) 0.1 (0.0-0.2) X10*3/uL Abs Immat Gran (auto) 0.01 (0.00-0.03) X10*3/uL Absolute Neuts (auto) 4.0 (2.0-8.3) x10*3/uL Absolute Nucleated RBC 0.000 (0.0-0.012) X10*3/uL Nucleated RBC % (auto) 0.0 (0.0-0.2) /100WBC Radiology Impression Discussion of test interpretation with radiology: I have reviewed the radiologist's reading. Radiologist Impression: FINDINGS: A gestational sac is seen but no yolk sac is detected. A pole is identified that measures 0.37 cm which would correspond to gestational age of 6 weeks 1 day. However, no heartbeat is detected. . ? MATERNAL ADNEXA: ? ? The right maternal ovary measures 3.6 x 4.1 x 2.0 cm.? There is a 1.8 cm benign cyst in the right ovary. The left maternal ovary has been removed No free fluid present in the cul-de-sac. US/US OB pelvic and transvaginal IMPRESSION: A pole is seen but no heartbeat is detected. The yolk sac is not seen. Suspect nonviable fetus but? Short-term sonographic follow-up and serial beta hCG levels are recommended for further evaluation. Discharge Plan Discharge Clinical Impression: Complete Patient Disposition: Home, Self-Care Instructions: Miscarriage (ED) Additional Instructions: Please follow-up with your primary care physician and your OBGYN tomorrow. If you have any worsening or new symptoms, please return to the emergency room or call 911 Prescriptions: New ibuprofen 600 mg tablet 600 mg PO TID PRN (Reason: fever or pain) Qty: 20 0RF No Action naproxen 500 mg tablet 500 mg PO BID 14 Days Qty: 28 0RF Rx Instructions: take with food Nexplanon 68 mg implant subdermal Referrals: Tanvir Conway MD [Physician] - 04/09/23
[2023-04-04 18:47] VITALS: BP 129/85; PULSE 83; RESP 18; TEMP 36.9; O2SAT 99; BMI 19.8
[2023-04-04 19:47] VITALS: BP 123/78; PULSE 98; RESP 16; TEMP 36.9; O2SAT 98
[2023-04-04 19:56] LABS: MANUAL DIFF FLAG NO
[2023-04-04 19:59] LABS: Basophils Absolute Auto 0.1 X10*3/uL (0.0-0.2); Basophils Percent Auto 0.9 % (0-2); Eosinophils Absolute Auto 0.1 X10*3/uL (0.0-0.4); Eosinophils Percent Auto 0.7 % (0-4); Hematocrit 36.3 % (37.0-47.0); Hemoglobin 12.3 g/dl (12.0-16.0); Imm Gran Abs Auto 0.01 X10*3/uL (0.00-0.03); Imm Gran Pct Auto 0.1 % (0.0-0.4); Lymphocytes Absolute Auto 3.7 X10*3/uL (1.2-4.9); Lymphocytes Percent Auto 44.3 % (20-40); Mean Corpuscular HGB Conc 33.9 g/dl (31.0-35.0); Mean Corpuscular Hemoglobin 30.1 pg (27.0-33.0); Mean Platelet Volume 10.4 fL (9.4-12.3); Monocytes Absolute Auto 0.5 X10*3/uL (0.1-1.2); Monocytes Percent Auto 5.6 % (2-11); Neutrophils Percent Auto 48.4 % (45-73); Platelet Count 226 X10*3/uL (160-400); Red Blood Count 4.08 X10*6/uL (4.20-5.50); Red Cell Distribution Width 12.1 % (11.0-16.0); White Blood Count 8.2 X10*3/uL (4.8-10.8)
--- NOTE | 2023-04-04 20:04 | PC.NURSE ---
Pt ca&ox3, no signs of distress. Pt's bf at bedside. Wctm.
[2023-04-04] MEDS: Acetaminophen 325 MG TABLET 975 MG PO (20:54)
--- NOTE | 2023-04-04 20:59 | PC.NURSE ---
Pt ca&ox3, bf at bedside. Provider in with pt. Medicated per mar. wtcm.
== END 2023-04-04 21:09 | disposition home or self-care (01) ==
PROVIDERS: Emergency Provider Emergency Medicine
DX: O03.9 Complete or unspecified spontaneous abortion without complication (principal)
CPT/HCPCS: 36415; 85025; 99283; 99284

== ENCOUNTER 2024-09-26 13:02 | Outpatient (REF) | payer MEDICAID, SELFPAY ==
--- NOTE | ~2024-09-26 | XR_ITS ---
EXAMINATION: XR HAND, LEFT CLINICAL INFORMATION: Fall onto L hand COMPARISON: Left wrist 01/26/2023 TECHNIQUE: PA, lateral, and oblique views of the left hand. FINDINGS: There is an acute, comminuted fracture of the distal fifth metacarpal neck/head. There is radial displacement of the distal bone. The distal bone is angulated towards the radial and palmar aspect. No definitive intra-articular extension is seen. The articulation at the fifth MCP joint appears maintained, with overlapping of the osseous structures on some of the views, likely related to positioning/technique. Soft tissue swelling in this region. No additional acute fractures identified. Joint spaces are maintained. No erosions. No abnormal soft tissue calcification. XR/XR hand LT min 3V IMPRESSION: Acute, comminuted, displaced and angulated fracture of the distal fifth metacarpal neck/head, as detailed above. Electronically signed by: Elian Hall MD 09/26/2024 01:50 PM [facility]
== END 2024-09-26 13:03 | disposition home or self-care (01) ==
LOC: HO.XRAY 13:02
PROVIDERS: Visit Provider Nurse Practitioner Primary Care
DX: R60.0 Localized edema (principal)
CPT/HCPCS: 73130

== ENCOUNTER 2024-12-01 16:35 | Emergency (ER) | payer MEDICAID, SELFPAY ==
--- NOTE | ~2024-12-01 | XR_ITS ---
CLINICAL HISTORY: trauma 4 views nasal bones Comparison: None Findings: Acute mildly displaced fracture of the left nasal bone. No radiopaque foreign bodies. The visualized sinuses and mastoids are clear. IMPRESSION: Acute mildly displaced fracture of the left nasal bone. This document has been electronically signed by: Danay Clark MD on 12/01/2024 19:02:40
[2024-12-01 17:08] VITALS: BP 135/88; PULSE 103; O2SAT 100
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
[2024-12-01] MEDS: Amoxicillin/Potassium Clav 875 MG TABLET PO (17:58)
[2024-12-01] MEDS: Oxymetazoline HCl 0.05 % Nasal 15 ML SPRAY 2 SPRAY NOSTRIL-B (17:58)
--- OUTSIDE RECORDS SUMMARY | 2024-12-01 18:07 | XMS_ITS | Encounter Summary ---
Author Organization [employer] Address [address] [facility] [address] [place] [address] Care Team Providers Care Laboratory Chief Name Role Phone Trisha Jurado NP Primary Care Provider [phone] Reason for Visit * Reason Onset Date Comments Med Refill 09/20/2023 Encounter Details Date Type Department Care Team (Late st Contact Info) Description 09/20/2023 Refill [facility] [address] [place] [address] Anika Borja MD [address] [place] [address] Social History Tobacco Use Types Packs/Day Years Used Date Smoking Tobacco: Never Smokeless Tobacco: Never Alcohol Use Standard Drinks/Week Comments Not Currently 0 (1 standard drink = 0.6 oz pur e alcohol) Comments No Sex and Gender Information Value Date Recorded Sex Assigned at Female 08/21/2022 10:29 AM EDT Legal Sex Female 10:29 AM EDT Gender Identity Female 08/21/2022 10:29 AM EDT Sexual Orientation Straight 12/13/2022 11 :49 AM EST documented as of this encounter Plan of Treatment Not on file documented as of this encounter Visit Diagnoses Not on filedocumented in this encounter Care Teams Laboratory Chief Relationship Specialty Start Date End Date Trisha Jurado NP [address] [place] [address] PCP - General Family Medicine 08/07/23 documented as of this encounter
--- OUTSIDE RECORDS SUMMARY | 2024-12-01 18:07 | XMS_ITS | Encounter Summary ---
Author Organization [employer] Address [address] [facility] [address] [place] [address] Support Name Relationship Address Phone [place] Domestic partner [address] [place] [address] Zee Sumner Mother Unknown Care Team Providers Care Bullet Assembly Press Setter Operator Name Role Phone Justo Gutierrez Primary Care Provider Fahad Starr Primary Care Provider Paige Frederick Primary Care Provider [phone] Trisha Jurado NP Primary Care Provider [phone] Encounter Details Date Type Department Care Team (Latest Contact Info) Description 10/06/2021 Abstract [facility] CONVERSIONS Dental, Provider, DDS Social History Tobacco Use Types Packs/Day Years Used Date Smoking Tobacco: Never Assessed Comments Unknown Sex and Gender Information Value Date Recorded Sex Assigned at Female 08/21/2022 10:29 AM EDT Legal Sex Female 10:29 AM EDT Gender Identity Female 08/21/2022 10:29 AM EDT Sexual Orientation Straight 12/13/2022 11 :49 AM EST documented as of this encounter Plan of Treatment Not on file documented as of this encounter Visit Diagnoses Not on filedocumented in this encounter Care Teams Bullet Assembly Press Setter Operator Relationship Specialty Start Date End Date Justo Gutierrez AGNP PCP - General Family Medicine 08/01/22 11/07/22 Fahad Gutiérrez FNP PCP - General Family Medicine 11/08/22 12/20/22 Paieg Monge FNP PCP - General Family Medicine 12/21/22 04/12/23 Trisha Jurado NP [address] [place] [id number] PCP - General Family Medicine 08/07/23 documented as of this encounter
--- OUTSIDE RECORDS SUMMARY | 2024-12-01 18:07 | XMS_ITS | Encounter Summary ---
Author Organization [employer] Address [address] [facility] 7t [place] [address] Care Team Providers Care Leather Skinner Name Role Phone Trisha Jurado NP Primary Care Provider [phone] Encounter Details Date Type Department Care Team (Late st Contact Info) Description 08/12/2024 1:00 PM EDT Office Visit [facility] [address] [place] [address] Eduin Nichols DDS [address] [place] [address] Social History Tobacco Use Types Packs/Day Years [...] AM EST documented as of this encounter Last Filed Vital Signs Vital Sign Reading Time Taken Comments Blood Pressure 110/60 08/12/2024 1:08 PM EDT Pulse - - Temperature - - Respiratory Rate - - Oxygen Saturation - - Inhaled Oxygen Concentration - - Weight - - Height - - Body Mass Index - - documented in this encounter Progress Notes * Eduin Nichols DDS - 08/12/2024 1:00 PM EDT Patient ID: Gayatri Sumner is a 34 y.o. female. Time Out: Timeout Date: 08/12/24, Timeout Time: 1308 (extraction) Location: [facility] Tooth: #3 Procedure: Extraction Verified the above with patient, pastoral assistant, and provider. Confirmed via patient's chart, intraorally and by radiographs. Retail Sales Specialist: not applicable No chief complaint on file. Medical Hx: Vitals: Blood pressure 110/60. History reviewed. No pertinent past medical history. Medications: Outpatient Encounter Medications as of 08/12/2024 Medication Sig Dispense Refill albuterol 108 (90 Base) MCG/ACT inhaler Inhale 2 puffs every 4 (four) hours if needed for wheezing.18 g 3 azelastine (Astelin) 0.1 % nasal spray Administer 1 spray into each nostril 2 times daily. Use in each nostril as directed 30 mL 12 azithromycin (Zithromax) 250 MG tablet Take 2 tabs day and then 1 tab daily 6 tablet 0 levonorgestrel-ethinyl estradiol (Aviane) 0.1-20 MG-MCG tablet Take 1 tablet by mouth in the morning for 28 days. 28 tablet 3 loratadine (Claritin) 10 MG tablet Take 1 tablet (10 mg) by mouth in the morning. 30 tablet 11 Facility-Administered Encounter Medications as of 08/12/2024 Medication Dose Route Frequency Provider Last Rate Last Admin predniSONE (Deltasone) tablet 40 mg 40 mg Oral Once Anika Borja MD Consent Obtained: The risks, benefits, indications, potential complications, and alternatives were explained to the patient and informed consent was obtained with good understanding. 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 Pharyngeal curtain and bite block placed. Removed tooth with elevators and forceps. Apices intact. Surgical Extraction: N/A Socket curetted & irrigated with sterile water. Compressed alveolar bone. Sutures: None Needed All adjacent teeth intact. Hemostasis achieved. Complications: None Written and verbal post-op instructions given. Patient discharged in stable condition; ambulatory, alert, and oriented. NV: Exam Medical Referral Coordinator: Meena Carroll Dentist: Eduin Nichols DDSEncounter created in error documented in this encounter Plan of Treatment Not on file documented as of this encounter Procedures Procedure Name Priority Date/Time Associated Diagnosis Comments 3 EXTRACTION, ERUPTED TOOTH OR EXPOSED ROOT (ELEVATION AND/OR FORCEPS REMOVAL) Routine 08/12/2024 1:00 PM EDT documented in this encounter Visit Diagnoses Not on filedocumented in this encounter Care Teams Leather Skinner Relationship Specialty Start Date End Date Trisha Jurado NP [address] [place] [address] PCP - General Family Medicine 08/07/23 documented as of this encounter
--- OUTSIDE RECORDS SUMMARY | 2024-12-01 18:07 | XMS_ITS | Encounter Summary ---
Author Organization [employer] Address [address] [place] [address] 7t [place] [address] Support Name Relationship Address Phone Glen Burden Domestic partner [address] [place] [address] Zee Sumner Mother Unknown Care Team Providers Care Television Cameraman Name Role Phone Paige Monge TECHNICAL MANAGER CHEMICAL PLANT Primary Care Provider [phone] Trisha Jurado NP Primary Care Provider [phone] Reason for Visit * Reason Onset Date Comments Results 04/04/2023 Encounter Details Date Type Department Care Team (Late st Contact Info) Description 04/04/[address] [facility] MEDICINE [address] [place] [id number] Paige Monge FNP [address] [place] [address] [place] [address] Results Social History Tobacco Use Types Packs/Day Years [...] AM EST documented as of this encounter Miscellaneous Notes * Telephone Encounter - Yuliya Chavira RN - 04/10/2023 9:40 AM EDT Placed call to pt regarding message below. Pt states she already received results and has f/u with DIRECTOR STYLE and has to do further BW with them today. Pt declined ED f/u at this time and states will f/uwith DIRECTOR STYLE as directed. Pt informed to call office if pt develops any new symptoms. Pt agrees withplan. * Telephone Encounter - Yuliya Chavira RN - 04/04/2023 3:47 PM EDT Reviewed ED note from [facility] that pt went today for vaginal bleeding and pt left before being told of US results. ED report indicated that there is nonviable . Unsure that pt is aware of miscarriage. Will scan ED note for PCP review but unsure if PCP would like to discuss ED visit with pt. * Telephone Encounter - Elizabeth Kaplan - 04/04/2023 2:41 PM EDT Tc from patient requesting lab test results from ED [facility] from 04/04/23. States she went in due to bleeding and being 10-11 weeks , ED stated she 6 weeks. Patient has a lot of questions in regards to lab results. documented in this encounter Plan of Treatment Not on file documented as of this encounter Visit Diagnoses Not on filedocumented in this encounter Care Teams Television Cameraman Relationship Specialty Start Date End Date Paige Monge FNP PCP - General Family Medicine 12/21/22 04/12/23 Trisha Jurado NP [address] [place] [address] PCP - General Family Medicine 08/07/23 documented as of this encounter
--- OUTSIDE RECORDS SUMMARY | 2024-12-01 18:07 | XMS_ITS | Encounter Summary ---
Author Organization [employer] Address [address] [facility] 7t [place] [address] Support Name Relationship Address Phone Glen Burden Domestic partner [address] [place] [address] Zee Sumner Mother Unknown Care Team Providers Care Casing Crew Name Role Phone Trisha Jurado NP Primary Care Provider [phone] Reason for Visit * Reason Onset Date Comments Results 09/26/2024 Encounter Details Date Type Department Care Team ([facility] st Contact Info) Description 09/26/2024 Telephone [facility] MEDICINE [address] [place] [address] Trisha Jurado NP [address] [place] [address] Results Social History Tobacco Use Types Packs/Day [...] encounter Miscellaneous Notes * Telephone Encounter - Tram Dickey - 09/26/2024 3:30 PM EST TC from pt requesting call back regarding Results. Type of results: Xray Date when done: 09/26/24 [place] [facility] Contact pt at [phone] documented in this encounter Plan of Treatment Not on file documented as of this encounter Visit Diagnoses Not on filedocumented in this encounter Care Teams Casing Crew Relationship Specialty Start Date End Date Trisha Jurado NP [address] [place] [address] PCP - General Family Medicine 08/07/23 documented as of this encounter
--- OUTSIDE RECORDS SUMMARY | 2024-12-01 18:07 | XMS_ITS | Encounter Summary ---
Author Organization [employer] Address [address] [facility] 7t [place] [address] Support Name Relationship Address Phone Glen Burden Domestic partner [address] [place] [address] Zee Sumner Mother Unknown Care Team Providers Care Director Of Neighborhood Service Center Name Role Phone Trisha Jurado NP Primary Care Provider [phone] Encounter Details Date Type Department Care Team (Late st Contact Info) Description 11/06/2024 Telephone [facility] D[facility] [address] [place] [address] Cindy Tram [address] [place] [address] Social History Tobacco Use Types Packs/Day Years [...] encounter Miscellaneous Notes * Telephone Encounter - Caleb Carroll - 11/06/2024 10:32 AM EST Called patient to reschedule an appointment due to provider been out today but there was no answer so I left a voicemail. documented in this encounter Plan of Treatment Not on file documented as of this encounter Visit Diagnoses Not on filedocumented in this encounter Care Teams Director Of Neighborhood Service Center Relationship Specialty Start Date End Date Trisha Jurado NP [address] [place] [address] PCP - General Family Medicine 08/07/23 documented as of this encounter
--- OUTSIDE RECORDS SUMMARY | 2024-12-01 18:07 | XMS_ITS | Clinical Summary ---
Author Organization [employer] Address [address] [facility] 7t [place] [address] Support Name Relationship Address Phone Glen Burden Domestic partner [address] [place] [address] Zee Sumner Mother Unknown Care Team Providers Care Lead Driver Name Role Phone Trisha Jurado NP Primary Care Provider [phone] Allergies No known active allergies Medications loratadine (Claritin) 10 MG tablet Take 1 tablet (10 mg) by mouth in the morning. 30 tablet 11 3 Active azelastine (Astelin) 0.1 % nasal spray Administer 1 spray into each nostril 2 times daily. Use in each nostril as directed 30 mL 12 3 Active albuterol 108 (90 Base) MCG/ACT inhaler Inhale 2 puffs every 4 (four) hours if needed for wheezing. 18 g 3 3 Active azithromycin (Zithromax) 250 MG tablet Take 2 tabs day and then 1 tab daily 6 tablet 4 Active levonorgestrel-et hinyl estradiol (Aviane) 0.1-20 MG-MCG tabletIndications :OCP (oral contraceptive pills) initiation Take 1 tablet by mouth Once per day. Use backup method for 7 days after starting. 28 tablet 11 4 08/28/20 25 Active Hospital, Clinic, or Other Facility Administered Medication Ordered Dose Route Frequency Start Date End Date Status predniSONE (Deltasone) tablet 40 mgIndications:Cough in adult patient 40 mg PO Once 08/01/2023 Active Active Problems Problem Noted Date Diagnosed Date Anemia during 08/12/2024 Bleeding in early 08/12/2024 Decreased movement 08/12/2024 Anxiety and depression 08/12/2024 GERD (gastroesophageal reflux disease) Grand multiparity 08/12/2024 History of prior with IUGR Late care 08/12/2024 Folliculitis 08/29/2018 Respiratory crackles 09/12/2017 Weight decreased 05/03/2017 Encounters Date Type Department Care Team Description 11/06/2024 Telephone [facility] D[facility] [address] [place] [address] Tram White 09/27/2024 Orders Only [facility] [address] [place] [address] Reshma Blair ANP 09/26/2024 10:20 AM EST Office Visit [facility] [address] [place] [address] Reshma Blair ANP Swelling of left hand (Primary Dx); control counseling; Family planning; OCP (oral contraceptive pills) initiation 09/26/2024 Telephone [facility] [address] [place] [address] Trisha Jurado NP Results from Last 3 Months Immunizations Name Administration Dates Next Due Influenza injectable quadriv alent IIV4 with preservative 09/12/2017 Influenza injectable quadriv alent preservative free 09/11/2019 Influenza, IIV3, injectable 07/29/2013 Influenza, Injectable, MDCK, preservative free 08/11/2015 Pneumococcal Polysaccharide PPSV23 01/18/2018 Tdap 05/11/2021, 9,11/23/2017,05/27,08/26/2013 Social History Tobacco Use Types Packs/Day Years Used Date Smoking Tobacco: Never Smokeless Tobacco: Never Tobacco Cessation:Counseling Given: Not Answered Alcohol Use Standard Drinks/Week Comments Not Currently 0 (1 standard drink = 0.6 oz pur e alcohol) Comments No Sex and Gender Information Value Date Recorded Sex Assigned at Female 08/21/2022 10:29 AM EDT Legal Sex Female 10:29 AM EDT Gender Identity Female 08/21/2022 10:29 AM EDT Sexual Orientation Straight 12/13/2022 11 :49 AM EST Last Filed Vital Signs Vital Sign Reading Time Taken Comments Blood Pressure 120/83 09/26/2024 10:29 AM EST Pulse 70 09/26/2024 10:29 AM EST Temperature 36.7 ??C (98 ??F) 09/26/2024 10:29 AM EST Respiratory Rate 16 09/26/2024 10:29 AM EST Oxygen Saturation 98% 09/26/2024 10:29 AM EST Inhaled Oxygen Concentration - - Weight 51.7 kg (114 lb) 09/26/2024 10:29 AM EST Height 157.5 cm (5' 2 ) 08/01/2023 2:52 PM EDT Body Mass Index 20.85 08/01/2023 2:52 PM EDT Plan of Treatment Health Maintenance Due Date Last Done Comments Depression Screening 1991 SDOH Screening 1991 Alcohol/Substance Use Screening 2003 Family Planning (PISQ) 2006 Hepatitis B Vaccines (1 of 3 - 19+ 3-dose series) 2010 HPV/Cotest 2021 Dental Oral Exam 04/01/2022 09/30/2021, , 03/01/2016 Dental Prophylaxis 04/07/2022 10/06/2021, 0 03/26/2018, 09/20/2017, Additional history exists Dental X-Ray: Bitewings 10/01/2022 09/30/20 21, 04/05/2018, 03/01/2016 Cervical Cancer Screening 12/16/2023 Pap Smear 12/16/2023 12/16/2020 COVID-19 Vaccine ( season) 2024 Influenza Vaccine (#1) 2024 9, 09/12/2017, 08/11/2015, Additional history exists Tobacco Screening 09/26/2025 09/26/2024 Dental X-Ray: Full Mouth 08/13/2027 024, 03/31/2016, 03/01/2016 DTaP/Tdap/Td Vaccines (7 - Td or Tdap) 01/27/2034 01/28/2024, 05/11/2021, 09/11/2019, Additional history exists Zoster Vaccines (1 of 2) 2041 RSV Patients and Patients Aged 60 years or older (1 - 1-dose 75+ series) 2066 Pneumococcal Vaccine: Pediatrics (0 to 5 Years) and At-Risk Patients (6 to 49) Years) Aged Out 01/18/2018 No longer eligible based on patient's age to complete this topic HIV Screening Completed 11/29/2020 Hepatitis C Screening Completed 11/29/2020 HIB Vaccines Aged Out No longer eligi ble based on patient's age to complete this topic HPV Vaccines Aged Out No longer eligi ble based on patient's age to complete this topic Hepatitis A Vaccines Aged Out No long er eligible based on patient's age to complete this topic IPV Vaccines Aged Out No longer eligi ble based on patient's age to complete this topic Meningococcal Vaccine Aged Out No rosario avtar eligible based on patient's age to complete this topic RSV under 20 months Aged Out No longe r eligible based on patient's age to complete this topic Rotavirus Vaccines Aged Out No longer eligible based on patient's age to complete this topic Procedures Procedure Name Priority Date/Time Associated Diagnosis Comments XR HAND 3+ VIEWS LEFT STAT 09/26/2024 1:07 PM EST Swelling of left hand POCT , URINE Routine 09/26/2024 10:57 AM EST control counseling PANORAMIC RADIOGRAPHIC IMAGE Routine 08/12/2024 11:30 AM EDT PROPHYLAXIS - ADULT Routine 10/06/2021 1 2:00 AM EST BITEWINGS - 4 RADIOGRAPHIC IMAGES Routine 09/30/2021 12:00 AM EST PERIODIC ORAL EVALUATION - ESTABLISHED PATIENT Routine 09/30/2021 12:00 AM EST PAP SMEAR Routine 12/16/2020 12:00 AM EST ZZZ HISTORICAL HEPATITIS B SURFACE ANTIGEN* Routine 11/29/2020 1:40 PM EST from Last 3 Months or Most Recently Relevant to Health Maintenance Results * XR Hand 3+ Views Left (09/26/2024 1:07 PM EST) Anatomical Region Laterality Modality Upper Extremities, Hand Left Radiogra phic Imaging 09/26/2024 1:07 PM EST Narrative 09/26/2024 1:53 PM EST ? [facility] ?[address] ?[place] [address] ?XRay Report ? Signed ? Patient: Burak,Gayatri ?MR#: [id number] ?? [id number] ? : 1990 ?Acct:[id number] ? Age/Sex: 34 / F ?ADM Date: 09/26/24 ? Loc: HO.XRAY ? Attending Dr: Reshma Blair NP ? Ordering Physician: RESHMA BLAIR NP ?? Date of Service: 09/26/24 ?? Procedure(s): XR hand LT min 3V ?? Accession Number(s): [id number] ? cc: Physician,Unknown ; RESHMA BLAIR NP ? EXAMINATION: ?? XR HAND, LEFT ? CLINICAL INFORMATION: ?? Fall onto L hand ? COMPARISON: ?? Left wrist 01/26/2023 ? TECHNIQUE: ?? PA, lateral, and oblique views of the left hand. ? FINDINGS: ?? There is an acute, comminuted fracture of the distal fifth metacarpal ?? neck/head. There is radial displacement of the distal bone. The distal ?? bone is angulated towards the radial and palmar aspect. No definitive ?? intra-articular extension is seen. The articulation at the fifth MCP ?? joint appears maintained, with overlapping of the osseous structures on ?? some of the views, likely related to positioning/technique. Soft tissue ?? swelling in this region. ? No additional acute fractures identified. Joint spaces are maintained. ?? No erosions. No abnormal soft tissue calcification. ? XR/XR hand LT min 3V ?? IMPRESSION: ?? Acute, comminuted, displaced and angulated fracture of the distal fifth ?? metacarpal neck/head, as detailed above. ? Electronically signed by: ??Elian Hall MD ??09/26/2024 01:50 PM EST ?? RP ? Dictated By: ?Elian Hall MD ? Signed By: ?<Electronically signed by Elian Hall MD in OV> ?09/26/24 1350 ? DD/ 1307 ? TD/TT: 09/26/24 1330 ? Mathematician Research: HB ? Procedure Note Renetta Lovett - 09/26/[address] [address] XRay Report Signed Patient: Sandy Sumner#: [id number] : 1990Acct:[id number] Age/Sex: 34 / FADM Date: 09/26/24 Loc: [facility] Attending Dr: Reshma Blair HOT TOP LINER Ordering Physician: RESHMA BLAIR NP Date of Service: 09/26/24 Procedure(s): XR hand LT min 3V Accession Number(s): [id number] cc: Physician,Unknown ; RESHMA BLAIR NP EXAMINATION: XR HAND, LEFT CLINICAL INFORMATION: Fall onto L hand COMPARISON: Left wrist 01/26/2023 TECHNIQUE: PA, lateral, and oblique views of the left hand. FINDINGS: There is an acute, comminuted fracture of the distal fifth metacarpal neck/head. There is radial displacement of the distal bone. The distal bone is angulated towards the radial and palmar aspect. No definitive intra-articular extension is seen. The articulation at the fifth MCP joint appears maintained, with overlapping of the osseous structures on some of the views, likely related to positioning/technique. Soft tissue swelling in this region. No additional acute fractures identified. Joint spaces are maintained. No erosions. No abnormal soft tissue calcification. XR/XR hand LT min 3V IMPRESSION: Acute, comminuted, displaced and angulated fracture of the distal fifth metacarpal neck/head, as detailed above. Electronically signed by: Elian Hall MD 09/26/2024 01:50 PM EST Dictated By: Elian Hall MD Signed By: <Electronically signed by Elian Hall MD in OV> 09/26/24 1350 DD/ 1307 TD/TT: 09/26/24 1330 Mathematician Research: GRANT Reshma Blair ANP IMG XR PROCEDURES Edited Result - Final * POCT , urine manually resulted (09/26/2024 10:57 AM EST) Preg Test, Ur Negative Negative, Indeterminate, None Detected, Invalid, Specimen unsatisfactory for evaluation, Weakly Positive Urine 09/26/2024 10:5 7 AM EST us Reshma CHASE POINT OF CARE TEST ENTER/EDIT OR DERABLES Final Result * Pap Smear (12/16/2020 12:00 AM EST) Swab Genia Ripley LAB CYTOLOGY ORDERABLES Final Re sult Performing Organization Address [facility] Co de Phone Number [facility] [address] [place] [address] [phone] * HEPATITIS B SURFACE ANTIGEN* (11/29/2020 1:40 PM EST) Pathologist [facility] [place] Hepatitis B Surface Antigen Negative Negative [facility] HIV AB/AG Nonreactive Nonreactive [facility] Comment: HIV-1 p24 Ag and/or HIV-1/HIV-2 Ab not detected. ?? A test result that is nonreactive does not exclude the possibility of exposure to or infection with HIV-1 and/or HIV-2. Nonreactive results in this assay for individuals with prior exposure to HIV-1 and/or HIV-2 may be due to antigen and antibody levels that are below the limit of detection of this assay. ?? The [employer] Appraiser Supervisor HIV Ag/Ab Combo assay result and supplemental assay results should be interpreted in conjunction with the patient's clinical presentation, history and other laboratory results. ??If the results are inconsistent with clinical evidence, additional testing is suggested to confirm the result. Hepatitis C Antibody Nonreactive Nonreactive [facility] Comment: Antibodies to HCV not detected; does not exclude early acute HCV infection. 11/29/2020 1:40 PM EST Becky Abdullahi HISTORICAL/NON ORDERABLE LABS Fi nal Result Performing Organization Address [facility] Co de Phone Number [facility] [address] from Last 3 Months or Most Recently Relevant to Health Maintenance Insurance [facility] MEDICAID STAND ADULT Care Teams Lead Driver Relationship Specialty Start Date End Date Trisha Jurado NP [address] [place] [address] PCP - General Family Medicine 08/07/23
--- OUTSIDE RECORDS SUMMARY | 2024-12-01 18:07 | XMS_ITS | Clinical Summary ---
Author Organization [facility] ity Address [address] [place] [address] Care Team Providers Care Flyer Repairer Name Role Phone Unavailable Primary Care Provider Unavailabl e Surgical History Surgery Date Site/Laterality Comments OOPHORECTOMY Left PROCEDURE: CO OOPHORECTOMY PARTIAL/TOTAL UNI/BI Medical History Medical History Date Comments Patient denies medical problems DX:Patient denies medical problems Social History Tobacco Use Types Packs/Day Years Used Date Smoking Tobacco: Never Smokeless Tobacco: Never Alcohol Use Standard Drinks/Week Comments Yes 0 (1 standard drink = 0.6 oz pur e alcohol) Comments Unknown Sex and Gender Information Value Date Recorded Sex Assigned at Not on file Legal Sex Female 10:13 AM EST Gender Identity Not on file Sexual Orientation Not on file Obstetrics History Plan of Treatment Health Maintenance Due Date Last Done Comments DTaP,Tdap,and Td Vaccines (1 - Tdap) 2010 Hepatitis B Vaccines (1 of 3 - 19+ 3-dose series) 2010 Cervical Cancer Screening: P ap Smear 2012 COVID-19 Vaccine ( - 2023-2 5 season) 2024 Influenza Vaccine (#1) 2024 HIB Vaccines Aged Out No longer eligi [...] on patient's age to complete this topic MMR Vaccines Aged Out No longer eligi ble based on patient's age to complete this topic Meningococcal ACWY Vaccine Aged Out N o longer eligible based on patient's age to complete this topic Pneumococcal Vaccine: Pediat rics (0 to 5 Years) and At-Risk Patients (6 to 64 Years) Aged Out No longer eligible b ased on patient's age to complete this topic RSV Immunization Patients Un silvana 20 months Aged Out No longer eligible b ased on patient's age to complete this topic Varicella Vaccines Aged Out No longer eligible based on patient's age to complete this topic
[2024-12-01 18:18] VITALS: BMI 20.8
[2024-12-01] MEDS: Lidocaine HCl 1%/Epi 1:100,000 10 ML VIAL INFILTRATI (18:44)
[2024-12-01] MEDS: Bacitracin Oint 0.9 GM PACKET 1 APPL TOPICAL (18:44)
[2024-12-01 19:08] VITALS: BP 126/83; PULSE 70; RESP 16; TEMP 36.7; O2SAT 97
== END 2024-12-01 19:09 | disposition home or self-care (01) ==
PROVIDERS: Emergency Provider Emergency Medicine
DX: S02.2XXA Fracture of nasal bones, initial encounter for closed fracture (principal); S01.21XA Laceration without foreign body of nose, initial encounter; Y09 Assault by unspecified means; Y93.9 Activity, unspecified; Y92.9 Unspecified place or not applicable; Y99.9 Unspecified external cause status; R04.0 Epistaxis
CPT/HCPCS: 12011; 70160; 99283; 99284; J2004

== ENCOUNTER → 2024-12-01 17:28 | Outpatient (BNV) | payer MEDICAID, SELFPAY | PROVIDERS: Emergency Provider Emergency Medicine; Visit Provider Student in an Organized Health Care Education/Training Program | DX: S09.93XA Unspecified injury of face, initial encounter (principal) | CPT/HCPCS: 70160 ==

== ENCOUNTER 2024-12-08 12:05 | Emergency (ER) | payer MEDICAID, SELFPAY ==
[2024-12-08 12:30] VITALS: BP 115/78; PULSE 84; RESP 19; TEMP 36.6; O2SAT 98; BMI 18.1
--- NOTE | 2024-12-08 12:32 | ED_ITS ---
HPI - Wound/Laceration General Chief Complaint: General Medical Stated Complaint: Suture Removal Time Seen by Provider: 12/08/24 12:40 Source: patient and RN notes reviewed Mode of arrival: ambulatory Limitations: no limitations History of Present Illness ED Provider: Mayela Roldan PA-C HPI narrative: This is a 34-year-old female who presents emergency department for suture removal. Patient was seen here on December 01, 2024 and had 2 sutures placed on her nasal bridge. She was advised to follow-up with early childhood associate teacher due to nasal bridge fracture. She states that she was trying to get a hold of [facility] maxillofacial surgeons, she will try again tomorrow to set up an appointment. She tolerated the sutures well without any complications or concerns. No fevers or chills. She is still taking the antibiotics as prescribed. No drainage. No other complaints or concerns at this time. Related Data Home Medications ?Medication ?Instructions ?Recorded ?Confirmed etonogestrel 68 mg subdermal subdermal 02/01/22 03/06/22 implant (Nexplanon) Previous Rx's ?Medication ?Instructions ?Recorded naproxen 500 mg tablet 500 mg PO BID 2 weeks #28 tabs 01/26/23 ibuprofen 600 mg tablet 600 mg PO TID PRN fever or pain 04/04/23 #20 tabs amoxicillin 875 mg-potassium 1 tab PO BID #10 tabs 12/01/24 clavulanate 125 mg tablet Allergies Allergy/AdvReac Type Severity Reaction Status Date / Time No Known Allergies Allergy Verified 12/08/24 12:32 [No Known Allergies*] Review of Systems Review of Systems: Yes all other systems are reviewed and are negative FORMERLY [facility], [facility] Past Medical History Medical History COVID-19 Surgical History S/P removal of left ovary Family History Family History Mother History of heart disease Father Hx of heart bypass surgery Maternal Grandmother No problems noted. Sister Family history of bipolar disorder Social History Social History Household Members: Significant Other and Children Alcohol intake: never Advance Directives: No Advance Directives Information Provided: Yes Do you have a plan to hurt others: No Plan Sexual orientation: Straight/Heterosexual Gender identity: Female Physical Exam Vital Signs: Vital Signs: Last Vital Signs Temp 98 F 12/08/24 12:45 Pulse 84 12/08/24 12:45 Resp 19 12/08/24 12:45 BP 115/78 12/08/24 12:45 Pulse Ox 98 12/08/24 12:45 O2 Del Method Room Air 12/08/24 12:45 BMI result Body Mass Index 18.1 Const: Other: General: Awake, alert, and oriented X3. No acute distress. HEENT: Normal inspection CVS: Normal heart rate and rhythm. Pulses normal. Respiratory: No respiratory distress Skin: Well-healed laceration noted overlying the nasal bridge, [address], no wound dehiscence, no drainage. No surrounding erythema or warmth. No fluctuance. Extremities: Normal to inspection Neuro: Oriented X 3. No motor deficit. No sensory deficit. Medical Decision Making Medical Decision Making MDM Narrative: This is a 34-year-old female who presents emergency department for suture removal. On arrival, vital signs within normal limits. She is speaking full sentences under no acute distress. Well-healed laceration noted overlying the nasal bridge. Two sutures removed from wound, no evidence of infection or wound dehiscence. Patient will follow-up with ENT, she will follow-up with [facility] as Dr. Mirza does not accept her health insurance. She has no current complaints or concerns. Patient stable for discharge Differential Diagnosis Differential Diagnoses: The differential diagnosis associated with the presentation includes Wound dehiscence, cellulitis, wound check, suture removal Discharge Plan Discharge Clinical Impression: Visit for suture removal Patient Disposition: Home, Self-Care Instructions: Stitches Removal (ED) Additional Instructions: You were seen in the emergency department for suture removal. We removed 2 sutures. Please do your best to avoid blowing your nose. Blowing your nose can cause increasing injuries in the wound and the fracture. You has been started on an antibiotic, amoxicillin/clavulanate (Augmentin). Please take this medication approximately every 12 hours. Next dose at 6:00 AM in the morning. After that approximately every 12 hours. Given that you have a fracture of the nasal bone I do not think it would be unreasonable for you to see an ENT (Ear Nose and Throat) doctor. Please call Dr. Mirza's office to see if you can get an a follow up appointment for this. Return to the emergency room if you feel you are developing any complications. Prescriptions: No Action naproxen 500 mg tablet 500 mg PO BID 14 Days Qty: 28 0RF Rx Instructions: take with food ibuprofen 600 mg tablet 600 mg PO TID PRN (Reason: fever or pain) Qty: 20 0RF amoxicillin-pot clavulanate 875-125 mg tablet 1 tab PO BID Qty: 10 0RF Nexplanon 68 mg implant subdermal Interventions: ED Discharge Assessment Last Done: 12/08/24 12:45 Discharge Date/Time: 12/08/24 12:53 Print Language: Nicaraguan
[2024-12-08 12:45] VITALS: BP 115/78; PULSE 84; RESP 19; TEMP 36.6; O2SAT 98
--- OUTSIDE RECORDS SUMMARY | 2024-12-08 12:54 | XMS_ITS | Encounter Summary ---
Author Organization [employer] Address [address] [facility] 7t [place] [address] Care Team Providers Care Asset Protection Professional Name Role Phone Trisha Jurado NP Primary Care Provider [phone] Encounter Details Date Type Department Care Team (Late st Contact Info) Description 08/12/2024 1:00 PM EDT Office Visit [facility] [address] [place] [address] Eduin Nichols DDS [address] [place] [address] Social History Tobacco Use Types Packs/Day Years [...] Date: 08/12/24, Timeout Time: 1308 (extraction) Location: [facility] Tooth: #3 Procedure: Extraction Verified the above with patient, assistant librarian, and provider. Confirmed via patient's chart, intraorally and by radiographs. Psychology Department Chair: not applicable No chief complaint on file. [...] condition; ambulatory, alert, and oriented. NV: Exam Regional Engagement Consultant: Meena Carroll Dentist: Eduin Nichols DDSEncounter created in error documented in this encounter Plan of Treatment Not on file documented as of this encounter Procedures Procedure Name Priority Date/Time Associated Diagnosis Comments 3 EXTRACTION, ERUPTED TOOTH OR EXPOSED ROOT (ELEVATION/FORCEPS REMOVAL) Routine 08/12/2024 1:00 PM EDT documented in this encounter Visit Diagnoses Not on filedocumented in this encounter Care Teams Asset Protection Professional Relationship Specialty Start Date End Date Trisha Jurado NP [address] [place] [address] PCP - General Family Medicine 08/07/23 documented as of this encounter
--- OUTSIDE RECORDS SUMMARY | 2024-12-08 12:54 | XMS_ITS | Clinical Summary ---
Author Organization [facility] [employer] Address [address] [facility] 7t [place] [address] Support Name Relationship Address Phone Glen Burden Domestic partner [address] [place] [address] Zee Sumner Mother Unknown Care Team Providers Care Estate Planner Name Role Phone Trisha Jurado NP Primary Care Provider [phone] Allergies No known active allergies Medications loratadine [...] Encounters Date Type Department Care Team Description 12/01/2024 Orders Only [facility] External Provider, [facility] 11/06/2024 Telephone [facility] [address] [place] [address] Tram White 09/27/2024 Orders Only [facility] [address] [address] Reshma Blair ANP 09/26/2024 10:20 AM EST [facility] [address] [address] Reshma Blair ANP Swelling of left hand (Primary Dx); control counseling; Family planning; OCP (oral contraceptive pills) initiation 09/26/2024 Telephone [facility] [address] [place] [address] Trisha Jurado NP Results from Last 3 [...] Name Priority Date/Time Associated Diagnosis Comments XR NASAL BONES Routine 12/01/2024 7:02 PM EST XR HAND 3+ VIEWS LEFT STAT 09/26/2024 [...] Relevant to Health Maintenance Results * XR Nasal Bones (12/01/2024 7:02 PM EST) Anatomical Region Laterality Modality Head, Neck Radiographic Astrid ging 12/01/2024 7:02 PM EST Narrative 12/01/2024 7:03 PM EST ? [facility] ?[address] ?[place] [address] ?XRay Report ? Signed ? Patient: Gayatri Sumner ?MR#: [id number] ?? 0087 ? : 1990 ?Acct:[id number] ? Age/Sex: 34 / F ?ADM Date: 12/01/24 ? Loc: HO.ED ? Attending Dr: ? Ordering Physician: Markie Landry MD ?? Date of Service: 12/01/24 ?? Procedure(s): XR nasal bones min 3V ?? Accession Number(s): [id number] ? cc: [facility]; Markie Landry MD ? CLINICAL HISTORY: trauma ? 4 views nasal bones ? Comparison: None ? Findings: ?? Acute mildly displaced fracture of the left nasal bone. ?? No radiopaque foreign bodies. ?? The visualized sinuses and mastoids are clear. ? IMPRESSION: ?? Acute mildly displaced fracture of the left nasal bone. ? This document has been electronically signed by: Danay Clark MD on ?? 12/01/2024 19:02:40 ? Dictated By: ?Danay Clark MD ? Signed By: ?<Electronically signed by Danay Clark MD in OV> ?12/01/241902 ? DD/ 01 ? TD/TT: 12/01/241901 ? Skidder Driver: ? Procedure Note Renetta Lovett - 12/01/[address] [address] XRay Report Signed Patient: Sandy Sumner#: [id number] 0087 : 1990Acct:[id number] Age/Sex: 34 / FADM Date: 12/01/24 Loc: MYAH.ED Attending Dr: Ordering Physician: Markie Landry MD Date of Service: 12/01/24 Procedure(s): XR nasal bones min 3V Accession Number(s): [id number] cc: [facility]; Markie Landry MD CLINICAL HISTORY: trauma 4 views nasal bones Comparison: None Findings: Acute mildly displaced fracture of the left nasal bone. No radiopaque foreign bodies. The visualized sinuses and mastoids are clear. IMPRESSION: Acute mildly displaced fracture of the left nasal bone. This document has been electronically signed by: Danay Clark MD on 12/01/2024 19:02:40 Dictated By: Daany Clark MD Signed By: <Electronically signed by Danay Clark MD in OV> 12/01/241902 DD/ 01 TD/TT: 12/01/241901 Skidder Driver: [facility] External Provider IMG XR PROCEDURES Edited Result - Final * XR Hand 3+ Views Left (09/26/2024 1:07 PM EST) Anatomical Region Laterality Modality Upper Extremities, Hand Left Radiogra phic Imaging 09/26/2024 1:07 PM EST Narrative 09/26/2024 1:53 PM EST ? [facility] ?[address] ?[place] [address] ?XRay Report ? Signed ? Patient: Gayatri Sumner ?MR#: [id number] ?? 0087 ? : 1990 ?Acct:[id number] ? Age/Sex: 34 / F ?ADM Date: 09/26/24 ? Loc: HO.XRAY ? Attending Dr: Reshma Blair PRODUCT PROMOTER [employer] ? Ordering Physician: RESHMA BLAIR NP ?? Date of Service: 09/26/24 ?? Procedure(s): XR hand LT min 3V ?? Accession Number(s): [id number] ? cc: Physician,Unknown ; RESHMA BLAIR [employer] ? EXAMINATION: ?? XR HAND, LEFT ? [...] DD/ 1307 ? TD/TT: 09/26/24 1330 ? Skidder Driver: HB ? Procedure Note Dongwendolyn, Image - 09/26/2024 [place] [address] XRay Report Signed Patient: Sandy Sumner#: [id number] 0087 : 1990Acct:[id number] Age/Sex: 34 / FADM Date: 09/26/24 Loc: KULDIP Attending Dr: Reshma Blair NP Ordering Physician: RESHMA BLAIR NP Date of Service: 09/26/24 Procedure(s): XR hand LT min 3V Accession Number(s): [id number] cc: Physician,Unknown ; RESHMA BLAIR NP EXAMINATION: [...] Elian Hall MD 09/26/2024 01:50 PM EST RP Workstation: Shoot it!-[id number] Dictated By: Elian Hall MD Signed By: <Electronically signed by Elian Hall MD in OV> 09/26/24 1350 DD/ 1307 TD/TT: 09/26/24 1330 Skidder Driver: HB us Reshma Blair ANP IMG XR PROCEDURES Edited Result - Final * POCT , urine manually resulted (09/26/2024 10:57 AM EST) Preg Test, Ur Negative Negative, Indeterminate, None Detected, Invalid, Specimen unsatisfactory for evaluation, Weakly Positive Urine 09/26/2024 10:5 7 AM EST us Reshma Blair ANP POINT OF CARE TEST ENTER/EDIT OR DERABLES Final Result * Pap Smear (12/16/2020 12:00 AM EST) Swab [facility] CYTOLOGY ORDERABLES Final Re sult [facility] [address] [place] [phone] * HEPATITIS B SURFACE ANTIGEN* (11/29/2020 1:40 PM EST) Hepatitis B Surface Antigen Negative Negative [facility] HIV AB/AG Nonreactive Nonreactive [facility] Comment: HIV-1 p24 Ag and/or [...] detection of this assay. ?? The [employer] Work[employer] HIV Ag/Ab Combo assay result and supplemental assay results should be interpreted in conjunction with the patient's clinical presentation, history and other laboratory results. ??If the results are inconsistent with clinical evidence, additional testing is suggested to confirm the result. Hepatitis C Antibody Nonreactive Nonreactive [facility] Comment: Antibodies to HCV not detected; does not exclude early acute HCV infection. 11/29/2020 1:40 PM EST us Becky Abdullahi HISTORICAL/NON ORDERABLE LABS Fi nal Result [facility] [address] from Last 3 Months or Most Recently Relevant to Health Maintenance Insurance [facility] C3 DENTAL-[facility] MEDICAID STAND ADULT Care Teams Estate Planner Relationship Specialty Start Date End Date Trisha Jurado NP [address] [place] [address] PCP - General Family Medicine 08/07/23
--- OUTSIDE RECORDS SUMMARY | 2024-12-08 12:54 | XMS_ITS | Encounter Summary ---
Author Organization [employer] Address [address] [facility] 7t [place] [address] Care Team Providers Care Roofing Contractor Name Role Phone Trisha Jurado NP Primary Care Provider [phone] Reason for Visit * Reason Onset Date Comments Med Refill 09/20/2023 Encounter Details Date Type Department Care Team (Late st Contact Info) Description 09/20/2023 Refill [facility] [address] [place] [address] Anika Borja MD [address] [place] [address] Social History Tobacco Use Types Packs/Day Years [...] on filedocumented in this encounter Care Teams Roofing Contractor Relationship Specialty Start Date End Date Trisha Jurado NP [address] [place] [address] PCP - General Family Medicine 08/07/23 documented as of this encounter
--- OUTSIDE RECORDS SUMMARY | 2024-12-08 12:54 | XMS_ITS | Encounter Summary ---
Author Organization [employer] Address [address] [facility] 7t [place] [address] Support Name Relationship Address Phone Glen Burden Domestic partner [address] [place] [address] Zee Sumner Mother Unknown Care Team Providers Care Braiding Machine Operator Name Role Phone Trisha Jurado NP Primary Care Provider [phone] Reason for Visit * Reason Onset Date Comments Results 09/26/2024 Encounter Details Date Type Department Care Team ([facility] st Contact Info) Description 09/26/2024 Telephone [facility] [address] [place] [address] Trisha Jurado NP [address] [place] [address] Results Social History Tobacco Use Types Packs/Day [...] results: Xray Date when done: 09/26/24 Facility: [facility] Contact pt at [phone] documented in this encounter Plan of Treatment Not on file documented as of this encounter Visit Diagnoses Not on filedocumented in this encounter Care Teams Braiding Machine Operator Relationship Specialty Start Date End Date Trisha Jurado NP [address] [place] [address] PCP - General Family Medicine 08/07/23 documented as of this encounter
--- OUTSIDE RECORDS SUMMARY | 2024-12-08 12:54 | XMS_ITS | Clinical Summary ---
Author Organization [facility] ity Address [address] [place] [address] Care Team Providers Care Kohinoor Operator Name Role Phone Unavailable Primary Care Provider Unavailabl e Surgical History Surgery Date Site/Laterality Comments OOPHORECTOMY Left PROCEDURE: [place] OOPHORECTOMY PARTIAL/TOTAL UNI/BI Medical History Medical History [...] patient's age to complete this topic Meningococcal B Vacine Aged Out No lo nger eligible based on patient's age to complete [...]
--- OUTSIDE RECORDS SUMMARY | 2024-12-08 12:54 | XMS_ITS | Encounter Summary ---
Author Organization [employer] Address [address] [place] [address] 7t [place] [address] Support Name Relationship Address Phone Glen Burden Domestic partner [address] [place] [address] Zee Sumner Mother Unknown Care Team Providers Care Ged Preparation Teacher Name Role Phone Paige Monge DIGITAL CARTOGRAPHIC TECHNICIAN Primary Care Provider [phone] Trisha Jurado NP Primary Care Provider [phone] Reason for Visit * Reason Onset Date Comments Results 04/04/2023 Encounter Details Date Type Department Care Team (Late st Contact Info) Description 04/04/2023 Telephone [facility] [address] [place] [address] Paige Monge FNP [address] [place] [address] Dept [place] [address] Results Social History Tobacco Use Types Packs/Day [...] already received results and has f/u with [facility] and has to do further BW with them today. Pt declined ED f/u at this time and states will f/uwith [facility] as directed. Pt informed to call office if pt develops any new symptoms. Pt agrees withplan. * Telephone Encounter - Yuliya Chavira RN - 04/04/2023 3:47 PM EDT Reviewed ED note from [facility] that pt went today for vaginal bleeding [...] patient requesting lab test results from ED [facility] from 04/04/23. States she went in due to bleeding and being 10-11 weeks , ED stated she 6 weeks. Patient has a lot of questions in regards to lab results. documented in this encounter Plan of Treatment Not on file documented as of this encounter Visit Diagnoses Not on filedocumented in this encounter Care Teams Ged Preparation Teacher Relationship Specialty Start Date End Date Paige Monge FNP PCP - General Family Medicine 12/21/22 04/12/23 Trisha Jurado NP [address] [place] [address] PCP - General Family Medicine 08/07/23 documented as of this encounter
--- OUTSIDE RECORDS SUMMARY | 2024-12-08 12:54 | XMS_ITS | Encounter Summary ---
Author Organization [employer] Address [address] [facility] 7t [place] [address] Support Name Relationship Address Phone Glen Burden Domestic partner [address] [place] [address] Zee Sumner Mother Unknown Care Team Providers Care Press Washer Name Role Phone Trisha Jurado NP Primary Care Provider [phone] Encounter Details Date Type Department Care Team (Late st Contact Info) Description 12/01/2024 Orders Only [facility] External Provider, [facility] Social History Tobacco Use Types Packs/Day Years [...] NASAL BONES Routine 12/01/2024 7:02 PM EST documented in this encounter Results * XR Nasal Bones (12/01/2024 7:02 PM EST) Anatomical Region Laterality Modality Head, Neck Radiographic Astrid ging 12/01/2024 7:02 PM EST Narrative 12/01/2024 7:03 PM EST ? [facility] ?[address] ?[place] [address] ?XRay Report ? Signed ? Patient: Burak,Gayatri ?MR#: [id number] ?? 0087 ? : 1990 ?Acct:[id number] ? Age/Sex: 34 / F ?ADM Date: 12/01/24 ? Loc: HO.ED ? Attending Dr: ? Ordering Physician: Markie Landry MD ?? Date of Service: 12/01/24 ?? Procedure(s): XR nasal bones min 3V ?? Accession Number(s): [id number] ? cc: [facility]; Markie Landry MD ? CLINICAL HISTORY: [...] signed by Danay Clark MD in OV> ?12/01/24 1903 ? DD/ 190 ? TD/TT: 12/01/241901 ? Services Advisor: ? Procedure Note Bony, Image - 12/01/2024 [place] [address] XRay Report Signed Patient: Sandy Sumner#: [id number] 0087 : 1990Acct:[id number] Age/Sex: 34 / FADM Date: 12/01/24 Loc: HO.ED Attending Dr: Ordering Physician: Markie Landry MD Date of Service: 12/01/24 Procedure(s): XR nasal bones min 3V Accession Number(s): [id number] cc: [facility]; Markie Landry MD CLINICAL HISTORY: trauma 4 views nasal bones Comparison: None Findings: Acute mildly displaced fracture of the left nasal bone. No radiopaque foreign bodies. The visualized sinuses and mastoids are clear. IMPRESSION: Acute mildly displaced fracture of the left nasal bone. This document has been electronically signed by: Danay Clark MD on 12/01/2024 19:02:40 Dictated By: Danay Clark MD Signed By: <Electronically signed by Danay Clark MD in OV> 12/01/241902 DD/ 01 TD/TT: 12/01/241901 Services Advisor: [facility] External Provider IMG XR PROCEDURES Edited Result - Final documented in this encounter Visit Diagnoses Not on filedocumented in this encounter Care Teams Press Washer Relationship Specialty Start Date End Date Trisha Jurado NP [address] [place] [address] PCP - General Family Medicine 08/07/23 documented as of this encounter
== END 2024-12-08 12:53 | disposition home or self-care (01) ==
LOC: HO.ED 12:52
PROVIDERS: Emergency Provider Emergency Medicine
DX: Z48.02 Encounter for removal of sutures (principal); Z79.899 Other long term (current) drug therapy
CPT/HCPCS: 99282

== ENCOUNTER 2025-03-12 11:46 | Outpatient (REF) | payer MEDICAID, SELFPAY ==
--- NOTE | ~2025-03-12 | XR_ITS ---
EXAMINATION: XR HAND, LEFT CLINICAL INFORMATION: 2 weeks of lateral left wrist pain COMPARISON: 09/26/2024. 01/26/2023. TECHNIQUE: PA, lateral, and oblique views of the left hand. FINDINGS: The bones and soft tissues are normal. No fracture. Alignment is anatomic. Joint spaces are maintained. No erosions or soft tissue calcifications. There is a bone island in the proximal aspect, proximal phalanx, third digit. XR/XR hand LT min 3V IMPRESSION: No acute findings left hand and wrist. Electronically signed by: Sukhwinder Herring MD 03/12/2025 12:42 PM EDT
--- OUTSIDE RECORDS SUMMARY | 2025-03-12 12:18 | XMS_ITS | Encounter Summary ---
Author Organization [employer] Address [address] [facility] 7 [place] [address] Care Team Providers Care Software Application Tester Name Role Phone Justo Gutierrez Primary Care Provider Fahad Starr Primary Care Provider Paige Frederick Primary Care Provider [phone] Trisha Jurado NP Primary Care Provider [phone] Encounter Details Date Type Department Care Team (Latest Contact Info) Description 10/06/2021 Abstract [facility] CONVERSIONS Dental, Provider, DDS Social History Tobacco [...] on filedocumented in this encounter Care Teams Software Application Tester Relationship Specialty Start Date End Date Justo Gutierrez AGNP PCP - General Family Medicine 08/01/22 11/07/22 Fahad Gutiérrez FNP PCP - General Family Medicine 11/08/22 12/20/22 Paige Monge FNP PCP - General Family Medicine 12/21/22 04/12/23 Trisha Jurado NP [address] [place] [address] PCP - General Family Medicine 08/07/23 documented as of this encounter
--- OUTSIDE RECORDS SUMMARY | 2025-03-12 12:18 | XMS_ITS | Encounter Summary ---
Author Organization [employer] Address [address] [facility] [address] 7t [place] [address] Care Team Providers Care Saturator Tender Name Role Phone Trisha Jurado NP Primary Care Provider [phone] Reason for Visit * Reason Onset Date Comments Med Refill 09/20/2023 Encounter Details Date Type Department Care Team (Late st Contact Info) Description 09/20/[address] [facility] [address] [place] [address] Anika Borja MD [address] [place] [address] Social History Tobacco Use Types Packs/Day Years [...] on filedocumented in this encounter Care Teams Saturator Tender Relationship Specialty Start Date End Date Trisha Jurado NP [address] [place] [address] PCP - General Family Medicine 08/07/23 documented as of this encounter
--- OUTSIDE RECORDS SUMMARY | 2025-03-12 12:18 | XMS_ITS | Clinical Summary ---
Author Organization [facility] ity Address [address] [place] [address] Care Team Providers Care Compounding And Finishing Supervisor Name Role Phone Unavailable Primary Care Provider Unavailabl e Surgical History Surgery Date Site/Laterality Comments OOPHORECTOMY Left PROCEDURE: [place] OOPHORECTOMY PARTIAL/TOTAL UNI/BI Medical History Medical History [...] - 2023-2 5 season) 2024 Influenza Vaccine (Season Ended) 2025 HIB Vaccines Aged Out No longer eligi [...] age to complete this topic Meningococcal B Vaccine Aged Out No l onger eligible based on patient's age to complete [...]
--- OUTSIDE RECORDS SUMMARY | 2025-03-12 12:18 | XMS_ITS | Clinical Summary ---
Author Organization [employer] Address [address] [facility] 7[address] [place] [address] Support Name Relationship Address Phone [place] Personal Relationship [address] [place] [address] Zee Sumner Personal Relationship Unknown [phone] Care Team Providers Care Blade Bender Furnace Tender Name Role Phone Trisha Jurado NP Primary Care Provider [phone] Allergies No known active allergies Medications loratadine (Claritin) 10 MG tablet Take 1 tablet (10 mg) by mouth in the morning. 30 tablet 11 08/01/20 23 Active azelastine (Astelin) 0.1 % nasal spray Administer 1 spray into each nostril 2 times daily. Use in each nostril as directed 30 mL 12 08/01/20 23 Active Additional Information Patient not taking.Reported on 01/22/2025 albuterol 108 (90 Base) MCG/ACT inhaler Inhale 2 puffs every 4 (four) hours if needed for wheezing. 18 g 3 09/19/20 23 Active azithromycin (Zithromax) 250 MG tablet Take 2 tabs day and then 1 tab daily 6 tablet 07/29/20 24 Active Additional Information Patient not taking.Reported on 01/22/2025 levonorgestrel-et hinyl estradiol (Aviane) 0.1-20 MG-MCG tabletIndications :OCP (oral contraceptive pills) initiation Take 1 tablet by mouth Once per day. Use backup method for 7 days after starting. 28 tablet 11 09/26/20 24 025 Active Additional Information Patient not taking.Reported on 01/22/2025 acetaminophen (Tylenol 8 Hour) 650 MG ER tabletIndications :Severe dental caries,Non-restor able tooth,Odontalgia Take 1 tablet (650 mg) by mouth every 8 (eight) hours if needed for mild pain. Do not crush, chew, or split. 30 tablet 01/23/20 25 Active Diclofenac Sodium 1 % gel Apply thin layer by topical route (quantity as directed on package insert) to affected area of pain 3 times daily as needed. 50 g 3 02/26/20 25 025 Discontinu ed(Side effects) acetaminophen (Tylenol Extra Strength) 500 MG tablet Take 1 tablet (500 mg) by mouth every 8 (eight) hours if needed for mild pain for up to 10 days. 30 tablet 02/26/20 25 025 Hospital, Clinic, or Other Facility Administered Medication Ordered Dose Route Frequency Start Date End Date Status predniSONE (Deltasone) tablet 40 mgIndications:Cough in adult patient 40 mg PO Once 08/01/2023 Active Active Problems Problem Noted Date Diagnosed Date Severe dental caries 01/22/2025 Odontalgia 01/22/2025 Anemia during 08/12/2024 Bleeding in early 08/12/2024 Decreased movement 08/12/2024 Anxiety and depression 08/12/2024 GERD (gastroesophageal reflux disease) Grand multiparity 08/12/2024 History of prior with IUGR Late care 08/12/2024 Folliculitis 08/29/2018 Respiratory crackles 09/12/2017 Weight decreased 05/03/2017 Encounters Date Type Department Care Team Description 02/25/2025 4:40 PM EDT Office Visit [facility] [address] [place] [address] Name, MD Corey Left hand pain (Primary Dx); Flexor tenosynovitis of thumb 01/22/2025 11:30 AM EDT Office Visit [facility] [address] [place] [address] [id number] Mohan Tinoco DDS Severe dental caries (Primary Dx); Non-restorable tooth; Odontalgia 01/15/[address] [facility] [address] [place], [place] [phone] Trisha Jurado NP Nurse Triage 01/02/2025 Population Health Risk Score [facility] ([facility]) Department [address] [address] Provider, Population Health Generic 12/18/[address] [facility] [address] [place] [address] Catrina Bejarano [place] December recall from Last 3 Months Immunizations Immunization Administration Dates Next Due Influenza injectable quadriv alent IIV4 with preservative 09/12/2017 Influenza injectable quadriv alent preservative free 09/11/2019 Influenza, IIV3, injectable 07/29/2013 Influenza, Injectable, MDCK, preservative free 08/11/2015 Pneumococcal Polysaccharide PPSV23 01/18/2018 Tdap 05/11/2021, 9,11/23/2017,05/27,08/26/2013 Social History Tobacco Use Types Packs/Day Years Used Date Smoking Tobacco: Never Passive Smoke Exposure: Never Smokeless Tobacco: Never Tobacco Cessation:Counseling Given: [...] Sign Reading Time Taken Comments Blood Pressure 122/87 02/25/2025 5:00 PM EDT Pulse 85 02/25/2025 5:00 PM EDT Temperature 36.8 ??C (98.2 ??F) 02/25/2025 5:00 PM ED T Respiratory Rate 20 02/25/2025 5:00 PM EDT Oxygen Saturation 99% 02/25/2025 5:00 PM EDT Inhaled Oxygen Concentration - - Weight 53.8 kg (118 lb 9.6 oz) 02/25/2025 5:00 P M EDT Height 157.5 cm (5' 2 ) 02/25/2025 5:00 PM EDT Body Mass Index 21.69 02/25/2025 5:00 PM EDT Plan of Treatment Health Maintenance Due Date Last Done Comments Depression Screening 1991 SDOH Screening 1991 Disability Screening 1991 Alcohol/Substance Use Screening 2003 Family [...] 09/12/2017, 08/11/2015, Additional history exists Tobacco Screening 02/25/2026 02/25/2025 Dental X-Ray: Full Mouth 08/13/2027 024, 03/31/2016, [...] Procedure Name Priority Date/Time Associated Diagnosis Comments CASE PRESENTATION, DETAILED AND EXTENSIVE TREATMENT PLANNING Routine 01/22/2025 11:30 AM EDT LIMITED ORAL EVALUATION - PROBLEM FOCUSED Routine 01/22/2025 11:30 AM EDT PANORAMIC RADIOGRAPHIC IMAGE Routine 08/12/2024 11:30 AM [...] Recently Relevant to Health Maintenance Results * Pap Smear (12/16/2020 12:00 AM EST) Swab Genia Pina [facility] CYTOLOGY ORDERABLES Final Re sult [facility] [address] [place] [phone] * HEPATITIS B SURFACE ANTIGEN* (11/29/2020 1:40 PM EST) Hepatitis B Surface Antigen Negative Negative [facility] HIV AB/AG Nonreactive Nonreactive FOUNDA [...] detection of this assay. ?? [employer] HIV Ag/Ab Combo assay result and supplemental assay results should be interpreted in conjunction with the patient's clinical presentation, history and other laboratory results. ??If the results are inconsistent with clinical evidence, additional testing is suggested to confirm the result. Hepatitis C Antibody Nonreactive Nonreactive [facility] Comment: Antibodies to HCV not detected; does not exclude early acute HCV infection. 11/29/2020 1:40 PM EST us Becky Abdullahi HISTORICAL/NON ORDERABLE LABS Fi nal Result [facility] [address] from Last 3 Months or Most Recently Relevant to Health Maintenance [place] [address] [place] [address] C3 DENTAL-[facility] MEDICAID STAND ADULT Care Teams Blade Bender Furnace Tender Relationship Specialty Start Date End Date Trisha Jurado NP [address] [place] [phone] PCP - General Family Medicine 08/07/23
--- OUTSIDE RECORDS SUMMARY | 2025-03-12 12:18 | XMS_ITS | Encounter Summary ---
Author Organization [employer] Address [address] [facility] 7[address] [place] [address] Care Team Providers Care Surveyor Geophysical Prospecting Name Role Phone Trisha Jurado NP Primary Care Provider [phone] Reason for Visit * Reason Onset Date Comments Results 09/26/2024 Encounter Details Date Type Department Care Team (Late st Contact Info) Description 09/26/2024 Telephone [facility] [address] [place] [address] Trisha Jurado NP [address] [place] [address] Results Social History Tobacco Use Types Packs/Day [...] results: Xray Date when done: 09/26/24 Facility: [facility] Contact pt at [phone] documented in this encounter Plan of Treatment Not on file documented as of this encounter Visit Diagnoses Not on filedocumented in this encounter Care Teams Surveyor Geophysical Prospecting Relationship Specialty Start Date End Date Trisha Jurado NP [address] [place] [address] PCP - General Family Medicine 08/07/23 documented as of this encounter
--- OUTSIDE RECORDS SUMMARY | 2025-03-12 12:18 | XMS_ITS | Encounter Summary ---
Author Organization [employer] Address [address] [place] [address] [place] [address] Care Team Providers Care Acid Remover Name Role Phone Paige Monge Primary Care Provider [phone] Trisha Jurado NP Primary Care Provider [phone] Reason for Visit * Reason Onset Date Comments Results 04/04/2023 Encounter Details Date Type Department Care Team (Late st Contact Info) Description 04/04/2023 Telephone [facility] [address] [place] [address] Paige Monge FNP [address] [place] [address] Dept [place] [address] Results Social History Tobacco Use Types Packs/Day [...] already received results and has f/u with [facility] and has to do further BW with them today. Pt declined ED f/u at this time and states will f/uwith [facility] as directed. Pt informed to call office if pt develops any new symptoms. Pt agrees withplan. * Telephone Encounter - Yuliya Chavira RN - 04/04/2023 3:47 PM EDT Reviewed ED note from [facility] that pt went today for vaginal bleeding [...] patient requesting lab test results from ED [facility] from 04/04/23. States she went in due to bleeding and being 10-11 weeks , ED stated she 6 weeks. Patient has a lot of questions in regards to lab results. documented in this encounter Plan of Treatment Not on file documented as of this encounter Visit Diagnoses Not on filedocumented in this encounter Care Teams Acid Remover Relationship Specialty Start Date End Date Paige Monge FNP PCP - General Family Medicine 12/21/22 04/12/23 Trisha Jurado NP [address] [place] [id number] PCP - General Family Medicine 08/07/23 documented as of this encounter
== END 2025-03-12 11:47 | disposition home or self-care (01) ==
LOC: HO.HHCX 11:46
PROVIDERS: Visit Provider Internal Medicine Geriatric Medicine
DX: M79.642 Pain in left hand (principal)
CPT/HCPCS: 73130

== ENCOUNTER → 2025-03-12 11:46 | Outpatient (BNV) | payer MEDICAID, SELFPAY | PROVIDERS: Visit Provider Radiology Diagnostic Radiology | DX: M25.532 Pain in left wrist (principal) | CPT/HCPCS: 73130 ==